=== PATIENT | female | born 1955 | race Caucasian/White ===

== ENCOUNTER 2021-11-25 18:25 | Emergency (ER) | payer MEDICARE, MEDICAID, SELFPAY ==
[2021-11-25 18:37] VITALS: BP 146/62; PULSE 66; RESP 18; TEMP 36.5; O2SAT 99
--- NOTE | 2021-11-25 19:12 | ED.URI ---
HPI - URI/Sore Throat General Chief Complaint: Upper Respiratory Infection Stated Complaint: cough/fever/congestion Time Seen by Provider: 11/25/21 18:57 Source: patient and RN notes reviewed Mode of arrival: ambulatory Limitations: no limitations History of Present Illness HPI Narrative: Patient presents today complaining of 5-day history of cough, facial pressure and congestion, chills. Denies fever, shortness of breath, chest pain. She has been taking Mucinex DM and Claritin with some relief. She called her doctor today and describes symptoms and was placed on Augmentin for presumed sinus infection. She also had a subsequent home a positive COVID-19 test. She is a non-smoker. She has been vaccinated against COVID-19. MD elicited complaint: cough, nasal congestion and sinus pain Related Data Home Medications Medication Instructions Recorded Confirmed citalopram 20 mg PO DAILY 11/30/19 11/25/21 levothyroxine 50 mcg PO DAILY 11/30/19 11/25/21 amoxicillin-pot clavulanate 1 tablet PO BID 11/25/21 11/25/21 gabapentin 300 mg PO DAILY 11/25/21 11/25/21 loratadine 10 mg PO DAILY 11/25/21 11/25/21 naproxen 500 mg PO DAILY PRN 11/25/21 11/25/21 spironolacton-hydrochlorothiaz 1 tablet PO DAILY 11/25/21 11/25/21 Allergies Allergy/AdvReac Type Severity Reaction Status Date / Time No Known Allergies Allergy Verified 11/25/21 19:01 Review of Systems Review of Systems: CONSTITUTIONAL: Denies body aches, fever, or sweats.+ Chills EYES: Denies visual changes, redness, or discharge. ENT: Denies rhinorrhea, sore throat, or otalgia.+ Congestion, facial pressure CARDIOVASCULAR: Denies chest pain, palpitations, or edema. RESPIRATORY: Denies dyspnea.+ Cough GASTROINTESTINAL: Denies abdominal pain, nausea, vomiting, or diarrhea. GENITOURINARY: Denies dysuria or hematuria. SKIN: Denies rash, itching, or wounds. MUSCULOSKELETAL: Denies back pain, joint pain, or myalgia. NEUROLOGIC: Denies headache, numbness, tingling, or weakness. PSYCH: Denies depression or anxiety. FOR[facility]LY [facility] Past Medical History Medical History (Updated 11/25/21 @ 19:15 by Juanita Hackett, [employer], ) Anxiety Depression Hypertension Hypothyroidism Comments At time of signature, I have reviewed and agree with nursing past medical, surgical, social and family history unless otherwise noted. Please see nursing chart for further information. There is no relevant family history pertinent to the presenting complaint Exam Narrative: GENERAL: Mildly ill-appearing, well-nourished, and in no acute distress. HEAD: Normocephalic, atraumatic. EYES: EOMI. No redness or drainage. Conjunctivae normal. ENT: Mucous membranes pink and moist. Nares congested. No rhinorrhea. TMs normal bilaterally. Throat normal. Uvula midline. NECK: Normal AROM. Supple. No lymphadenopathy. CHEST: No respiratory distress. Clear to auscultation. HEART: Regular rate and rhythm. No murmur appreciated. Normal peripheral pulses. EXTREMITIES: Normal range of motion. No edema. SKIN: Warm, dry, no rash. Capillary refill normal. Normal skin turgor. NEURO: No focal deficits. Alert and oriented x3. Gait steady. PSYCH: Normal affect. No signs of depression or anxiety. Course Course Level of Care: Express Care Visit Vital Signs Vital signs: Vital Signs Temperature 97.7 F 11/25/21 18:37 Pulse Rate 66 11/25/21 18:37 Respiratory Rate 18 11/25/21 18:37 Blood Pressure 146/62 H 11/25/21 18:37 Pulse Oximetry 99 11/25/21 18:37 Temperature 97.7 F 11/25/21 18:37 Pulse Rate 66 11/25/21 18:37 Respiratory Rate 18 11/25/21 18:37 Blood Pressure 146/62 H 11/25/21 18:37 Pulse Oximetry 99 11/25/21 18:37 Reviewed. Pt has been instructed to follow up with her PCP regarding her elevated blood pressure today. MDM - URI/Sore Throat Differential Diagnosis Differential diagnosis: Likely upper respiratory infection, sinusitis, viral infection and other (COVID-19) Critical Care
== END 2021-11-25 19:20 | disposition home or self-care (01) ==
PROVIDERS: Emergency Provider Nurse Practitioner
DX: U07.1 COVID-19 (principal); I10 Essential (primary) hypertension; E03.9 Hypothyroidism, unspecified; F41.9 Anxiety disorder, unspecified; F32.9 Major depressive disorder, single episode, unspecified
CPT/HCPCS: 99211; G0463

== ENCOUNTER 2022-04-21 13:00 | Outpatient (RCR) | payer MEDICARE, MEDICAID, SELFPAY ==
--- NOTE | 2022-01-25 17:30 | PTOPEVAL ---
PHYSICAL THERAPY EVALUATION AND PLAN OF CARE Thank you for referring Shantelle Hardy to [facility].? The patient is scheduled to be seen for therapy? 2x/week for 4 weeks. Please review, sign, date and return this plan of care CIRO. I agree with and certify that the following plan of care is medically necessary. Referring Physician Date Attending Provider: Iker Corado MD Evaluation Diagnosis right shoulder pain, rotator cuff tendinopathy Onset 06/2021 Subjective Information States that she has been Query Text:As Reported By Patient/ having pain in the right Family shoulder. She notes that her shoulder did not hurt prior to a fall in June 2021. States that it is not terrible pain but it is there. States that there is sometimes a catch in the shoulder preventing her from even picking up a cup of water. Will sometimes throb at night and an ice pack usually helps. States that most of the pain is in the upper arm as opposed to shoulder. States that her neck will start to ache if the shoulder/arm is really bothering her. Took oral steroids for a little while and is not sure that it did or did not help. Self Report Pain Assessment Right Shoulder(s) Reported Pain Level 7 Pain Description Aching Pain Frequency Chronic,Continuous Other Pain Aggravating Factors using the arm Pain Score Pain Score 7: Self Report Interventions Used Interventions Used By Clinicians Exercise,Mobilization,Manual Therapy Techniques Pain Relief Interventions Used By Ice,Medication,Massage Patient Modalities Cervical and Lumbar ROM Cervical ROM Cervical Flexion (0-60) 50 Query Text:Active in Degrees Cervical Extension (0-70) 50 Query Text:Active in Degrees Cervical Rotation Right (0-90) 60 Query Text:Active in Degrees Cervical Rotation Left (0-90) 50 Query Text:Active in Degrees Upper Extremity Range of Motion Scapular/ Shoulder Range of Motion Left Shoulder Flexion - Active 145 Shoulder Abduction - Active 145 Shoulder Medial Rotation - Active L1 Query Text:Reach Behind the Back Right Shoulder Flexion - Activ
--- NOTE | 2022-02-21 13:21 | PCPTNOTE ---
Patient did not show up for scheduled appointment this date. Called and left voicemail for Pt about missed appointment. Reminded of upcoming Re-eval on March 01 @ 13:00. This is Pt's first N/S.
--- NOTE | 2022-03-01 13:51 | PTOPEVAL ---
PHYSICAL THERAPY PROGRESS AND PLAN OF CARE UPDATE Thank you for referring Shantelle Hardy to [facility].? The patient is scheduled to be seen for therapy? 1x/week for 4 weeks. Please review, sign, date and return this plan of care CIRO. I agree with and certify that the following plan of care is medically necessary. Referring Physician Date Attending Provider: Iker Corado MD Diagnosis right shoulder pain, rotator cuff tendinopathy Onset 06/2021 Subjective Information States that she has been Query Text:As Reported By Patient/ having pain in the right Family shoulder. She notes that her shoulder did not hurt prior to a fall in June 2021. States that it is not terrible pain but it is there. States that there is sometimes a catch in the shoulder preventing her from even picking up a cup of water. Will sometimes throb at night and an ice pack usually helps. States that most of the pain is in the upper arm as opposed to shoulder. States that her neck will start to ache if the shoulder/arm is really bothering her. Took oral steroids for a little while and is not sure that it did or did not help. Self Report Pain Assessment Right Shoulder(s) Reported Pain Level 5 Pain Description Aching Pain Frequency Chronic,Continuous Other Pain Aggravating Factors using the arm Scapular/ Shoulder Range of Motion Left Shoulder Flexion - Active 145 Shoulder Abduction - Active 150 Shoulder Medial Rotation - Active L1 Query Text:Reach Behind the Back Shoulder Lateral Rotation - Active 60 Right Shoulder Flexion - Active 130 Shoulder Abduction - Active 150 Shoulder Medial Rotation - Active L3 Query Text:Reach Behind the Back Shoulder Lateral Rotation - Active 50 Upper Extremity Muscle Strength Testing Left Shoulder Flexion Strength 4- Good - Shoulder Abduction Strength 4- Good - Shoulder Medial Rotation Strength 4- Good - Shoulder Lateral Rotation Strength 4- Good - Right Shoulder Flexion Strength 4- Good - Shoulder Abduction Strength 4- Good - Shoulder Medial Rotation Strength 4- Good - Shoulder Lateral Rotation Strength 4- Good - PT Clinical Summary Shantelle has participated in
--- NOTE | 2022-03-24 09:51 | PCPTNOTE ---
Patient did not show up for scheduled appointment this date.
--- NOTE | 2022-03-29 13:04 | PTOPEVAL ---
PHYSICAL THERAPY PROGRESS REPORT and PLAN OF CARE UPDATE Thank you for referring Shantelle Hardy to [facility].? The patient is scheduled to be seen for therapy? 1-2x/week for 4 weeks to address low back and hip pain and findings. Please review, sign, date and return this plan of care CIRO. I agree with and certify that the following plan of care is medically necessary. Referring Physician Date Attending Provider: Iker Corado MD Diagnosis right shoulder pain, rotator cuff tendinopathy Onset 06/2021 Subjective Information states that her shoulder is Query Text:As Reported By Patient/ generally doing well now. She Family is doing yard work and every now and then it flairs up but she uses heating pad and she feels pretty good. She now has an order from physician for low back and hip pain. Occasional pain. She does have a history of spinal surgery ( fusion). Standing for long periods of time increases back and leg pain. Self Report Pain Assessment Back Reported Pain Level 3 Pain Frequency Chronic,Continuous Greatest Pain Intensity 9 Pain Aggravating Factors Walking,Weight Bearing/ Standing Patient Cervical and Lumbar ROM Lumbar ROM Lumbar Flexion (0-90) 30 Query Text:Active in Degrees Lumbar Flexion Active Ankle Query Text:Hands to: Upper Extremity Range of Motion Scapular/ Shoulder Range of Motion Left Shoulder Flexion - Active 145 Shoulder Abduction - Active 150 Shoulder Medial Rotation - Active L1 Query Text:Reach Behind the Back Shoulder Lateral Rotation - Active 60 Right Shoulder Flexion - Active 145 Shoulder Abduction - Active 150 Shoulder Medial Rotation - Active L1 Query Text:Reach Behind the Back Shoulder Lateral Rotation - Active 60 Lower Extremity Muscle Strength Testing Hip Strength Bilateral Hip Flexion Strength 4+ Good + Hip Extension Strength 3- Fair - Hip Abduction Strength 3- Fair - Knee Strength Bilateral Knee Flexion Strength 4 Good Knee Strength Comments trace quad set performed - required significant visual and tactile cues to engage Scapular/Shoulder Strength testing Left Shoulder Flexion Strength 4 Good Shoulder Abduction Strength 4 Good Shoulder Medial Rotation Strength 4 Good Shoulder Lateral Rotation Strength 4 Good Right
--- NOTE | 2022-04-12 15:24 | PCPTNOTE ---
Patient did not show up for scheduled appointment this date. Attempted calling Pt twice, however phone number in chart states it is no longer in service. Unable to leave voicemail. This is Pt's third N/S.
--- NOTE | 2022-04-14 13:13 | PCPTNOTE ---
Patient called & cancelled scheduled appointment this date due to being out of town.
--- NOTE | 2022-04-25 14:55 | PCPTNOTE ---
This treatment is being continued on visit number [id number]. Please see documentation on both accounts to view progress. Completed interventions, outcomes, and problems have been marked as Inactive to facilitate the copying of the Care plan routine for recurring accounts.
== END 2022-04-25 13:14 | disposition home or self-care (01) ==
LOC: ANHPT 13:00
PROVIDERS: Referring Provider Orthopaedic Surgery; Visit Provider Orthopaedic Surgery
DX: M75.111 Incomplete rotator cuff tear or rupture of right shoulder, not specified as traumatic (principal)
CPT/HCPCS: 97110; 97112; 97140; 97162; 97530

== ENCOUNTER 2022-05-03 07:23 | Outpatient (RCR) | payer MEDICARE, MEDICAID, SELFPAY ==
--- NOTE | 2022-04-25 14:55 | PCPTNOTE ---
The treatment documented on this account is a continuation of the treatment documented on visit number [id number]. Please see documentation on both accounts to view progress. The Plan of Care has been transitioned and updated within the new V#. I have addressed and agree with the discipline specific Problems, Interventions, and Goals for the current certification period. Completed interventions, outcomes, and problems have been marked as Inactive to facilitate the copying of the Care plan routine for recurring accounts.
--- NOTE | 2022-04-28 13:29 | PCPTNOTE ---
Patient did not show up for scheduled appointment this date. Called and left voicemail about missed appointment. Reminded Pt of upcoming Re-Eval next 05/03/22 @ 14:00.
--- NOTE | 2022-05-03 14:47 | PTOPEVAL ---
PHYSICAL THERAPY DISCHARGE NOTE Thank you for referring Shantelle Hardy to [facility].? Please review, sign, date and return this plan of care CIRO. I agree with and certify that the following plan of care is medically necessary. Referring Physician Date Attending Provider: Iker Corado MD Diagnosis right shoulder pain, rotator cuff tendinopathy Onset 06/2021 Subjective Information States she feels like she is Query Text:As Reported By Patient/ walking better overall. She Family does feel like her hip is screaming and she thinks it is maybe because she is walking differently and even better. She stats she has been on her feet every day for about a month and she is now able to rest down some. She is taking gabepenton and that is helping to calm the nerves at night. Patient Lumbar ROM Lumbar Flexion (0-90) 30 Lumbar Flexion Active Ankle Hip Strength Right Hip Flexion Strength 5 Normal Hip Extension Strength 3 Fair Hip Abduction Strength 3 Fair Knee Strength Right Knee Flexion Strength 5 Normal Knee Extension Strength 4 Good Gait Pattern Trendelenburg Gait Gait Pattern Observed Trunk Lateral Lean - Right Other Gait Observations continues to have abnormal gait pattern but does have better control and can correct gait pattern PT Clinical Summary Shantelle reports an improvement in symptoms and improved gait. She is able to participate in activities she wishes to participate in. Shantelle demonstrates a mild increase in right hip strength and demonstrates improved lumbar spine mobility. she is independent in HEP and uses a pool at home to exercise and increase strength. We will d/c from PT at this time.
== END 2022-07-18 11:57 | disposition home or self-care (01) ==
LOC: ANHPT 07:23
PROVIDERS: Referring Provider Orthopaedic Surgery; Visit Provider Orthopaedic Surgery
DX: M75.111 Incomplete rotator cuff tear or rupture of right shoulder, not specified as traumatic (principal); M70.60 Trochanteric bursitis, unspecified hip
CPT/HCPCS: 97110; 97112; 97162; 97530

== ENCOUNTER 2022-08-01 09:13 | Outpatient (CLI) | payer MEDICARE, MEDICAID, SELFPAY ==
--- NOTE | ~2022-08-01 | CT_ITS ---
EXAMINATION: CT diagnostic chest wo con DATE: 08/01/2022 09:31 INDICATION: Shortness of breath and cough TECHNIQUE: Computed tomography (CT) of the chest was performed without intravenous contrast. The dose -length product (DLP) was 544.43 mGy-cm. Automated exposure control and iterative reconstruction tech CrossReaderque were employed. COMPARISON: None FINDINGS: The lungs are free of acute opacities. No pleural effusion or pneumothorax. 2 mm nodules of the lingula and right lower lobe likely reflect old granulomatous disease. Calcified coronary artery atherosclerosis is noted. No pathologically enlarged thoracic lymph nodes are identified. The heart size is normal. There is a moderate-sized sliding hiatal hernia. There is severe thoracic spondylosis . IMPRESSION: 1. No CT correlate for the patient's symptoms. 2. Moderate-sized hiatal hernia. Reviewed, dictated and finalized at location A.
--- NOTE | 2022-08-01 12:44 | WPDPFTINT ---
PFT Procedure Performed PFT Procedure Performed Spirometry with Pre/Post Bronchodilator Plethysmography (Lung Vol) Diffusing Cap (DLCO) Flow Vol Loop PFT Interpretation This is a pulmonary function test with pre and post-bronchodilator spirometry, plethysmography and diffusing capacity. The test was performed and results interpreted in accordance with the 2019 and 2005 ATS/ERS Task Force guidelines respectively using the Global Lung Function Initiative-2012 reference equations. Patient demonstrated good effort and cooperation. Reproducibility criteria were met. The quality of the pre bronchodilator spirometry maneuver was Grade A and post bronchodilator spirometry maneuver was Grade A. Findings: Spirometry: The contour the inspiratory and expiratory flow tracing are normal. The pre bronchodilator FVC is 2.24 L, 88% predicted. The pre bronchodilator FEV1 is 1.77 L, 88% predicted. The pre bronchodilator FEV1: FVC ratio 79%. The post bronchodilator FVC is 2.52 L, representing a 12% increase. The post bronchodilator FEV1 is 2.08 L, representing a 17% increase. The post bronchodilator FEV1: FVC ratio was 82%. Plethysmography: The total lung capacity is 4.69 L, 106% predicted. The functional residual capacity is 2.55 L, 102% predicted. The residual volume is 2.36 L, 124% predicted. Diffusing capacity: The diffusing capacity unadjusted for hemoglobin and carboxyhemoglobin is 18.2, 94% predicted. The diffusing capacity adjusted for alveolar volume is 4.27, 94% predicted. Impression: The spirometry is normal without evidence of an obstructive abnormality. There is significant improvement after inhaling a single dose of albuterol. The lung volumes are normal. The diffusing capacity is normal. There are no prior studies for comparison
== END 2022-08-01 09:14 | disposition home or self-care (01) ==
PROVIDERS: PCP Family Medicine; Visit Provider Nurse Practitioner Family
DX: R05.3 Chronic cough (principal); U09.9 Post COVID-19 condition, unspecified; R06.09 Other forms of dyspnea; K44.9 Diaphragmatic hernia without obstruction or gangrene
CPT/HCPCS: 71250; 94060; 94726; 94729

== ENCOUNTER → 2022-08-29 12:32 | Outpatient (CLI) | payer MEDICARE, MEDICAID, SELFPAY ==
--- NOTE | ~2022-08-29 | MM_ITS ---
EXAMINATION: MM screening [facility] BI w leslee HISTORY: Screening mammogram TECHNIQUE: Craniocaudal and mediolateral oblique 3-D tomosynthesis images were obtained and synthetic 2-D images were generated. CAD analysis was submitted and interpreted. COMPARISON: 06/19/2018, 03/29/2017, 06/17/2015 BREAST PARENCHYMAL COMPOSITION: There are scattered areas of fibroglandular density. FINDINGS: No suspicious mass, calcification, or architectural distortion are identified in either rsoa ast to suggest malignancy. There has been no suspicious interval change. IMPRESSION: 1. No mammographic evidence of malignancy. 2. Recommend routine screening mammography in one year. BI-RADS Category 1: Negative Reviewed, dictated and finalized at location A.
--- NOTE | ~2022-08-29 | DEXA_ITS ---
Bone Density Report Name: STACIE BANEGAS Age: 67 Sex: Female Ethnicity: White Date of : 1955 Indication: postmenopausal; screening for osteoporosis; parental hip fracture; Referring Provider: LOWELL IZQUIERDO Study: Bone densitometry was performed. Exam Date: August 29, 2022 Accession number: [id number] Bone Density: Region BMD T-score Z-score Classification AP Spine (L1, L2) 1.187 1.9 3.6 Normal Femoral Neck (Left) 0.724 -1.1 0.5 Osteopenia Total Hip (Left) 0.941 0.0 1.3 Normal Femoral Neck (Right) 0.678 -1.5 0.0 Osteopenia Total Hip (Right) 0.911 -0.3 1.0 Normal Total Hip Mean 0.926 -0.2 1.2 Normal World Health Organization criteria for BMD impression classify patients as: Normal (T-score at or above -1.0), Osteopenia (T-score between -1.0 and -2.5), or Osteoporosis (T-score at or below -2.5). 10-year Fracture Risk(1): Major Osteoporotic Fracture 14% Hip Fracture 1.0% Reported Risk Factors: [place] (), Neck BMD=0.678, BMI=43.8, parental fracture (1) FRAX(R) Version 3.08. Fracture probability calculated for an untreated patient. Fracture probability may be lower if the patient has received treatment. Previous Exams: Region Exam Age BMD T-score BMD Change BMD Change Date g/cm2 vs Baseline vs Previous AP Spine(L1, L2) 08/29/2022 67 1.187 1.9 -0.009 -0.009 03/29/2017 61 1.196 2.0 Total Hip(Left) 08/29/2022 67 0.941 0.0 0.024 0.024 03/29/2017 61 0.917 -0.2 Total Hip(Right) 08/29/2022 67 0.911 -0.3 0.040* 0.040* 03/29/2017 61 0.871 -0.6 *Denotes significance at 95% confidence level, LSC for AP Spine = 0.022 g/cm2, LSC for Total Hip = 0.027 g/cm2 Clinical Information Provided by Patient: Parent has had a hip fracture Has used the following medications: Vitamin D Patient maximum height was 61.1 Menopause Age: 51 Drinks caffeinated beverages Onset of menses at age 17 Number of children 1 Impression: The patient has low bone mass, based on the Right Femoral Neck T-score. The patient has an estimated ten-year risk of hip fracture of 1% and an estimated ten-year risk of major fracture of 14%, based on the WHO FRAX algorithm. The patient has risk factors, including: parental hip fracture. No significant bone loss was observed. Discussion: BONE DENSITY IS LOW AT ONE OR MORE SKELETAL SITES. This patient's lowest T-score is low at one
== END ==
PROVIDERS: PCP Family Medicine; Visit Provider Obstetrics & Gynecology Gynecology
DX: Z12.31 Encounter for screening mammogram for malignant neoplasm of breast (principal); Z78.0 Asymptomatic menopausal state; M85.852 Other specified disorders of bone density and structure, left thigh; M85.851 Other specified disorders of bone density and structure, right thigh
CPT/HCPCS: 77063; 77067; 77080

== ENCOUNTER 2023-02-20 10:55 | Outpatient (CLI) | payer MEDICARE, MEDICAID, SELFPAY ==
--- NOTE | ~2023-02-20 | XR_ITS ---
Clinical Indication: CHF PA and lateral views of the chest: Comparison: None Findings: The lungs are clear, without evidence of focal consolidation or pleural effusion. Cardiome diastinal silhouette is within normal limits, status post CABG. Bones and soft tissues are unremarkab le. Impression: Clear lungs. Status post CABG. Reviewed, dictated and finalized at location . Impression: Clear lungs. Status post CABG.
== END 2023-02-20 10:56 | disposition home or self-care (01) ==
PROVIDERS: PCP Family Medicine; Visit Provider Specialist
DX: I50.22 Chronic systolic (congestive) heart failure (principal); Z95.1 Presence of aortocoronary bypass graft
CPT/HCPCS: 71046

== ENCOUNTER 2023-02-22 13:23 | Outpatient (CLI) | payer MEDICARE, MEDICAID, SELFPAY ==
--- NOTE | ~2023-02-22 | US_ITS ---
EXAMINATION: US pelvic complete w TV DATE: 02/22/2023 14:09 INDICATION: Pelvic pain Comparison:No prior studies for comparison. TECHNIQUE: Multiple transabdominal and endovaginal sonographic images of the pelvis performed. FINDINGS: The uterus measures 5.3 x 2.6 x 3.2 cm. There is a uterine fibroid measuring 1.5 x 1.4 x 1. 4 cm The endometrial complex measures 2 mm. The ovaries are not visualized. There is no free fluid in the pelvis. There are no abnormal masses seen on either side. IMPRESSION: 1. Uterine fibroid measuring 1.5 cm maximum dimension. Reviewed, dictated and finalized at location A.
== END 2023-02-22 13:24 | disposition home or self-care (01) ==
PROVIDERS: PCP Family Medicine; Visit Provider Family Medicine
DX: R10.2 Pelvic and perineal pain (principal); D25.9 Leiomyoma of uterus, unspecified
CPT/HCPCS: 76830; 76856

== ENCOUNTER 2023-03-08 09:45 | Outpatient (RCR) | payer MEDICARE, MEDICAID, SELFPAY | END 2023-04-17 14:28 | disposition home or self-care (01) | LOC: ANHCPREHAB 09:45 | PROVIDERS: PCP Family Medicine | DX: Z95.1 Presence of aortocoronary bypass graft (principal) | CPT/HCPCS: 93798 ==

== ENCOUNTER → 2023-05-29 12:57 | Outpatient (CLI) | payer MEDICARE, MEDICAID, SELFPAY ==
--- NOTE | ~2023-05-29 | MR_ITS ---
MRI of the lumbar spine Clinical History: Pain, radiculopathy Technique: Axial T2-weighted images, and sagittal T1-weighted, T2-weighted, and T2 fat-sat images wer e acquired. Following intravenous administration of 20 cc MultiHance gadolinium, T1-weighted fat-sat imaging was performed in the axial and sagittal planes. Findings: No acute fracture identified. There is probable minimal grade 1 anterolisthesis of L2 over L3. Patient has undergone interval posterior fusion from L4 to L5, with bilateral rods and transpedic ular screws present, as well as interbody fusion device at this level. There is probable L4 laminecto my. No suspicious bone marrow signal abnormality seen. At L1-L2, there is moderate to advanced degenerative disc narrowing. There is diffuse disc bulge and severe facet arthropathy, which contribute to moderate to severe thecal sac compression. There is sev ere right neural foraminal narrowing, and mild to moderate left neural foraminal narrowing. At L2-L3, disc bulge and severe facet arthropathy result in severe spinal canal stenosis/thecal sac c ompression. There is severe right neural foraminal narrowing, and moderate to severe left neural fora fabi narrowing. At L3-L4, disc bulge and severe facet arthropathy are present. No stacy central canal stenosis. There is mild to moderate bilateral neural foraminal narrowing. At L4-L5, there is no disc bulge or herniation. No spinal canal stenosis. Bilateral neural foramina a re probably preserved. At L5-S1, there is no disc bulge or herniation. No spinal canal stenosis or definite neural foraminal narrowing. Paravertebral soft tissues are unremarkable aside from expected postoperative change. No suspicious p ostcontrast enhancement identified. Impression: Severe degenerative spondylosis at L1-L2 and L2-L3, as detailed above. Mild to moderate bilateral neural foraminal narrowing at L3-L4. Status post interval posterior fusion and interbody fusion from L4 to L5, as detailed above. Minimal grade 1 anterolisthesis of L2 over L3. Reviewed, dictated and finalized at location M. Impression: Severe degenerative spondylosis at L1-L2 and L2-L3, as detailed above. Mild to moderate bilateral neural foraminal narrowing at L3-L4. Status post interval posterior fusion and interbody fusion from L4 to L5, as de tailed above. Minimal grade 1 anterolisthesis of L2 over L3.
== END ==
PROVIDERS: PCP Family Medicine; Visit Provider Nurse Practitioner Family
DX: M47.26 Other spondylosis with radiculopathy, lumbar region (principal); Z98.1 Arthrodesis status
CPT/HCPCS: 72158; A9577

== ENCOUNTER 2023-10-11 15:20 | Outpatient (CLI) | payer MEDICARE, MEDICAID, SELFPAY ==
--- NOTE | ~2023-10-11 | XR_ITS ---
XR lumbar spine 6V w bending 10/11/2023 15:55 Indication: Low back pain. Procedure: 7 views lumbar spine Comparison: No prior studies for comparison. Findings: Status post posterior spinal fusion with interbody fusion at L4-5. There is disc narrowing at all lumbar levels. There is advanced multilevel facet hypertrophy. No acute fracture or traumatic malalignment. No significant alteration with flexion/extension. Status post laminectomy at L4-5. Ther e is levoscoliosis centered at L3. There are degenerative changes of the left sacroiliac joint. Impression: 1: Severe lumbar spondylosis with posterior and interbody fusion at L4-5. Reviewed, dictated and finalized at location L. CH SUPERVISOR Impression: 1: Severe lumbar spondylosis with posterior and interbody fusion at L4-5.
== END 2023-10-11 15:21 | disposition home or self-care (01) ==
PROVIDERS: PCP Family Medicine; Visit Provider Physician Assistant
DX: M47.896 Other spondylosis, lumbar region (principal); Z98.1 Arthrodesis status
CPT/HCPCS: 72114

== ENCOUNTER → 2023-11-17 10:08 | Outpatient (CLI) | payer MEDICARE, MEDICAID, SELFPAY ==
--- NOTE | ~2023-11-17 | MM_ITS ---
EXAMINATION: MM screening [facility] BI w leslee HISTORY: Screening mammogram TECHNIQUE: Craniocaudal and mediolateral oblique 3-D tomosynthesis images were obtained and synthetic 2-D images were generated. CAD analysis was submitted and interpreted. COMPARISON: 08/29/2022, 06/19/2018, 03/29/2017 BREAST PARENCHYMAL COMPOSITION: There are scattered areas of fibroglandular density. FINDINGS: No suspicious mass, calcification, or architectural distortion are identified in either rosa ast to suggest malignancy. There has been no suspicious interval change. IMPRESSION: 1. No mammographic evidence of malignancy. 2. Recommend routine screening mammography in one year. BI-RADS Category 1: Negative Reviewed, dictated and finalized at location A. IER AND WAITER/WAITRESS
== END ==
PROVIDERS: PCP Family Medicine; Visit Provider Obstetrics & Gynecology Gynecology
DX: Z12.31 Encounter for screening mammogram for malignant neoplasm of breast (principal)
CPT/HCPCS: 77063; 77067

== ENCOUNTER 2024-05-16 10:38 | Emergency (ER) | payer MEDICARE, SELFPAY ==
[2024-05-16 10:52] VITALS: BP 105/57; PULSE 65; RESP 20; TEMP 36.6; O2SAT 98
--- NOTE | 2024-05-16 11:22 | ED.URI ---
HPI - URI/Sore Throat General Chief Complaint: Upper Respiratory Infection Stated Complaint: Sinus Time Seen by Provider: 05/16/24 11:22 Source: patient History of Present Illness HPI Narrative: patient reports 5 days of fatigue, cough, body aches, GI disturbance. She has not been taking anything for her symptoms. She denies any shortness of breath. She denies fever, does complain of some chills and sweats. Related Data Home Medications Medication Instructions Recorded Confirmed loratadine 10 mg tablet 10 mg PO DAILY 11/25/21 03/20/24 pantoprazole 40 mg tablet,delayed 40 mg PO QAM 07/20/22 05/16/24 release pregabalin 200 mg capsule 200 mg PO DAILY 11/17/22 05/16/24 aspirin 81 mg tablet,delayed 81 mg PO DAILY 05/25/23 05/16/24 release ferrous sulfate 325 mg (65 mg 325 mg PO DAILY 05/25/23 05/16/24 iron) tablet (FeroSul) furosemide 40 mg tablet 40 mg PO DAILY 05/25/23 03/20/24 metoprolol tartrate 25 mg tablet 25 mg PO DAILY 05/25/23 03/20/24 potassium chloride 20 mEq 20 meq PO DAILY 05/25/23 03/20/24 tablet,extended release(part/cryst) amiodarone 100 mg tablet 100 mg PO DAILY 10/11/23 05/16/24 atorvastatin 80 mg tablet 80 mg PO QHS 10/11/23 05/16/24 citalopram 40 mg tablet 20 mg PO DAILY 10/11/23 05/16/24 levothyroxine 88 mcg capsule 112 mcg PO DAILY 10/11/23 03/20/24 nitroglycerin 0.4 mg sublingual 0.4 mg sublingual Q5M PRN Chest 10/11/23 05/16/24 tablet Pain Allergies Allergy/AdvReac Type Severity Reaction Status Date / Time No Known Allergies Allergy Verified 05/16/24 11:00 Review of Systems Constitutional: Constitutional: Reports as per HPI, Reports chills, Reports fatigue and Denies fever(s) ENT: Reports sore throat Cardiovascular: Cardiovascular: Reports as per HPI and Reports no additional cardiovascular complaints Respiratory: Respiratory: Reports as per HPI, Reports cough and Denies wheezing Gastrointestinal: Gastrointestinal: Reports diarrhea, Reports nausea and Denies vomiting Musculoskeletal: Musculoskeletal: Reports myalgias Neurologic: Reports headache(s) [facility] Past Medical History Medical History Anxiety COVID-19 Degenerative disc disease cervical/lumbar Depression GERD (gastroesophageal reflux disease) Hypertension Hypothyroidism Surgical History Surgical History History of lumbar fusion 2018 S/P triple vessel bypass Family History Family History Father Diabetes mellitus Heart disease Hypertension HLD (hyperlipidemia) Depression Mother Cancer Sibling Alcoholism Cancer Hypertension Depression Lung disease Social History Social History Smoking status: Never smoker Second hand tobacco smoke exposure: Yes Alcohol intake: current Substance use: never Substance use type: does not use Lack of Transportation: No Lack of Food: Never True Current Housing: I Have Housing Concerned About Future Housing: No Difficulty Paying Gas/Electric Bills: YES Difficulty Paying for Meds: No Currently Unemployed: No Education: Trade/Vocational Certificate Difficulty w/ Childcare or Family Care: No Living arrangements: with family Occupation/Education: retired Gender identity (if verbalized by the patient): Female Exam Const: General: no acute distress Nutritional Appearance: obese Orientation/consciousness: patient oriented x3 HENMT: Head: normal to inspection Ears: TM's normal bilaterally Face/Nose/Sinus: Normal external nose present Resp: Effort & Inspection: normal respiratory effort Auscultation: clear to auscultation bilaterally Cardio: Rate: regular rate Rhythm: regular rhythm Heart sounds: no murmurs GI: GI Palp: Yes Soft to palpation, No Tenderness to palpation present (GI), No Guarding d
== END 2024-05-16 11:44 | disposition home or self-care (01) ==
PROVIDERS: Emergency Provider Nurse Practitioner Family; PCP Family Medicine
DX: U07.1 COVID-19 (principal); K21.9 Gastro-esophageal reflux disease without esophagitis; I10 Essential (primary) hypertension; E03.9 Hypothyroidism, unspecified; M50.30 Other cervical disc degeneration, unspecified cervical region; M51.36 Other intervertebral disc degeneration, lumbar region; F41.9 Anxiety disorder, unspecified; F32.A Depression, unspecified; Z95.1 Presence of aortocoronary bypass graft
CPT/HCPCS: 87426; 99213; G0463

== ENCOUNTER 2024-06-25 10:03 | Outpatient (CLI) | payer MEDICARE, SELFPAY ==
--- NOTE | ~2024-06-25 | XR_ITS ---
3 VIEWS LUMBAR SPINE Ordering provider: Betty Salas, COMMERCIAL LENDER History: . FALL X1 WEEK AGO, GENERAL RIGHT SIDED PAIN . Comparison: October 11, 2023 FINDINGS: VERTEBRAL BODIES:Levoscoliosis. No visible fracture or subluxation. Degenerative changes of the spin e. Postoperative changes in the lumbosacral area. Disc spacer at the level of L5-S1. DISK SPACES: Degenerative disc disease at all levels. Multilevel facet joint disease. SOFT TISSUES: Atherosclerotic changes of the aorta. Left sacroiliitis. IMPRESSION: No acute osseous abnormality lumbar spine. Multilevel degenerative disc disease. Reviewed, dictated and finalized at location A.
--- NOTE | ~2024-06-25 | XR_ITS ---
3 VIEWS THORACIC SPINE Ordering provider: Betty Salas, CATTLE EXAMINER History: . FALL X1 WEEK AGO, GENERAL RIGHT SIDED PAIN . Comparison: None. FINDINGS: VERTEBRAL BODIES: Normal height and alignment. No visible fracture or subluxation. Degenerative graham es seen. DISK SPACES: Multilevel narrowing of the disc spaces. SOFT TISSUES: Normal. Calcific areas seen in the right side of the T12 may be tablets in the stomach. Postoperative changes in the sternum. IMPRESSION: No acute osseous abnormality of the thoracic spine. Multilevel degenerative disc disease. Reviewed, dictated and finalized at location A.
--- NOTE | ~2024-06-25 | XR_ITS ---
XR hip BI 2V w AP pelvis 06/25/2024 10:39 Indication: Status post recent fall. Right-sided pelvic pain. Procedure: AP pelvis and 2 views each hip Comparison: No prior studies for comparison. Findings: There are changes of fusion at L4-5. There are mild symmetric degenerative changes of the s acroiliac joints and hips. No fracture or traumatic malalignment. Pelvic rings are intact. Sacral for amen are symmetric. No foreign bodies. There are pelvic phleboliths. Impression: 1: No acute bone or joint abnormality. Reviewed, dictated and finalized at location B. Impression: 1: No acute bone or joint abnormality.
== END 2024-06-25 10:04 | disposition home or self-care (01) ==
DX: R10.9 Unspecified abdominal pain (principal); M51.36 Other intervertebral disc degeneration, lumbar region; M51.34 Other intervertebral disc degeneration, thoracic region
CPT/HCPCS: 72070; 72100; 73521

== ENCOUNTER 2024-07-05 12:54 | Outpatient (CLI) | payer MEDICARE, SELFPAY ==
--- NOTE | ~2024-07-05 | CT_ITS ---
EXAMINATION: CT thoracic lumbar wo con DATE: 07/05/2024 13:28 INDICATION: Injury of back of trunk. TECHNIQUE: Computed tomography (CT) of the thoracic and lumbar spine was performed without intravenou s contrast. Automated exposure control and iterative reconstruction technique were employed. The dose -length product was 1533.08 mGy-cm. COMPARISON: Chest CT 08/01/2022 FINDINGS: CT THORACIC SPINE: There is a large sliding hiatal hernia. There is 6 degrees dextrocurvature of thor acic spine. There is mild chronic anterior wedging of T6-T10 vertebral bodies. There is decreased dis c height at most levels, severe from T4-T5 through T12-L1. There is multilevel facet joint osteoarthr itis, severe at many levels. There is multilevel mild neural foraminal stenosis on either side. On th e right, there is moderate neural foraminal stenosis at T2-T3, T4-T5, T9-T10, and T10-T11. On the lef t, there is moderate neural foraminal stenosis at T4-T5, T5-C6, T9-T10, and T10-T11. There is mild ce ntral canal stenosis from T7-T8 through T12-L1. CT LUMBAR SPINE: There is 15 degrees levoscoliosis of lumbar spine. There are changes of anterior and posterior fusion procedures at L5-S1 with interbody devices and pedicle screws. S1 is a transitional segment. Vertebral body heights are normal. There is severely decreased disc height from L1-L2 throu gh L3-L4 and moderately decreased disc height at L4-L5. The following disc levels are specifically di scussed: L1-L2: The disc is bulging. There is severe bilateral facet joint osteoarthritis. There is severe rig ht and mild left neural foraminal stenosis. There is mild central canal stenosis. L2-L3: The disc is bulging. There is severe bilateral facet joint osteoarthritis. There is moderate r ight and mild left neural foraminal stenosis. There is mild central canal stenosis. L3-L4: The disc is bulging. There is severe bilateral facet joint osteoarthritis. There is mild bilat eral neural foraminal stenosis. There is moderate central canal stenosis. L4-L5: The disc is bulging. There is severe bilateral facet joint osteoarthritis. There is mild bilat eral neural foraminal stenosis. There is mild central canal stenosis. L5-S1: There is mild bilateral facet joint hypertrophy. There is mild left neural foraminal stenosis. There is no central canal stenosis. IMPRESSION: 1. No fracture. 2. Severe thoracic and lumbar spondylosis. 3. Scoliosis. 4. Large sliding hiatal hernia. Reviewed, dictated and finalized at location A.
--- NOTE | ~2024-07-05 | CT_ITS ---
EXAMINATION: CT pelvis wo con DATE: 07/05/2024 13:28 INDICATION: Injury of back of trunk. TECHNIQUE: Computed tomography (CT) of the pelvis was performed without intravenous contrast. Automat ed exposure control and iterative reconstruction technique were employed. The dose-length product was 687.91 mGy-cm. COMPARISON: Pelvis radiograph 06/25/2024 FINDINGS: There is lumbar levoscoliosis. There are changes of anterior and posterior fusion procedure s at L5-S1. There is severe lumbar spondylosis. There is mild osteoarthritis of the hips. Osteitis pu bis is noted. IMPRESSION: 1. No fracture. 2. Mild osteoarthritis of the hips. Reviewed, dictated and finalized at location A.
== END 2024-07-05 12:55 | disposition home or self-care (01) ==
LOC: MICIMG 12:55
DX: S30.0XXA Contusion of lower back and pelvis, initial encounter (principal); M43.04 Spondylolysis, thoracic region; M43.06 Spondylolysis, lumbar region; M41.9 Scoliosis, unspecified; K44.9 Diaphragmatic hernia without obstruction or gangrene; M16.0 Bilateral primary osteoarthritis of hip; X58.XXXA Exposure to other specified factors, initial encounter
CPT/HCPCS: 72128; 72131; 72192

== ENCOUNTER 2024-10-17 15:16 | Outpatient (CLI) | payer MEDICARE, SELFPAY ==
--- NOTE | ~2024-10-17 | XR_ITS ---
EXAMINATION: XR chest 2V DATE: 10/17/2024 15:34 INDICATION: Cough. Fatigue. Fever. TECHNIQUE: Frontal and lateral views of the chest were obtained. COMPARISON: Chest 2 views 02/20/23, thoracic spine CT 07/05/2024 FINDINGS: There is no pneumonia, pleural effusion, or pneumothorax. The heart size is normal. Median sternotomy wires are noted. There is a moderate-sized hiatal hernia. IMPRESSION: 1. Moderate-sized hiatal hernia. Reviewed, dictated and finalized at location A. JS DEVELOPER
== END 2024-10-17 15:17 | disposition home or self-care (01) ==
DX: K44.9 Diaphragmatic hernia without obstruction or gangrene (principal); R05.9 Cough, unspecified; R53.83 Other fatigue; R50.9 Fever, unspecified
CPT/HCPCS: 71046

== ENCOUNTER 2024-11-26 14:40 | Outpatient (CLI) | payer MEDICARE, SELFPAY ==
--- NOTE | ~2024-11-26 | MM_ITS ---
EXAMINATION: MM screening [facility] BI w leslee HISTORY: Screening TECHNIQUE: Craniocaudal and mediolateral oblique 3-D tomosynthesis images were obtained and synthetic 2-D images were generated. CAD analysis was submitted and interpreted. COMPARISON: Comparison to multiple prior studies sequentially, with oldest reviewed study dated 06/17. BREAST PARENCHYMAL COMPOSITION: Not dense: There are scattered areas of fibroglandular density. FINDINGS: There is no evidence of suspicious mass, calcification, or architectural distortion to sugg est malignancy in either breast. There has been no suspicious interval change. IMPRESSION: 1. No mammographic evidence of malignancy. 2. Recommend routine screening mammography in one year. BI-RADS Category 1: Negative Reviewed, dictated and finalized at location A. RAFT ELECTRICIAN
== END 2024-11-26 14:41 | disposition home or self-care (01) ==
LOC: MICIMG 14:41
PROVIDERS: Visit Provider Nurse Practitioner Women's Health
DX: Z12.31 Encounter for screening mammogram for malignant neoplasm of breast (principal)
CPT/HCPCS: 77063; 77067

== ENCOUNTER 2024-11-28 14:31 | Outpatient (CLI) | payer MEDICARE, MEDICAID, SELFPAY ==
--- NOTE | ~2024-11-28 | CT_ITS ---
EXAMINATION: CT abdomen pelvis w con DATE: 11/28/2024 15:26 INDICATION: Left lower quadrant abdominal pain TECHNIQUE: Computed tomography (CT) of the abdomen and pelvis was performed with 100 mL Omnipaque-350 intravenous contrast. Automated exposure control and iterative reconstruction technique were employe d. The dose-length product was 1381.94 mGy-cm. COMPARISON: CT pelvis dated 07/05/2024 FINDINGS: Mild discoid atelectasis at the medial left lower lobe. Heart size is normal. Median sternotomy wires and surgical clips about the heart suggesting prior coronary artery bypass grafting. No pericardial or pleural effusion. Moderate-sized sliding-type hiatal hernia. Liver, gallbladder, spleen, pancreas and bilateral adrenal glands are normal. A few bilateral low-attenuation likely renal cysts which are too small to definitively characterize. Bladder, uterus and bilateral adnexa are unremarkable. There is moderate sigmoid and descending colon predominant diverticulosis without adjacent inflammatory ch homero to suggest diverticulitis. Small bowel and appendix are normal. No free intraperitoneal gas or f luid. No pathologically enlarged abdominal or pelvic lymphadenopathy. Mild lumbar levoscoliosis with moderate to severe spondylosis. Combined instrumented L4-L5 anterior and posterior spinal fusion with interbody bone graft cage and bilateral vertical dot and pedicle screw fixation. IMPRESSION: 1. No acute intra-abdominal/pelvic process. 2. Moderate diverticulosis. 3. Moderate-sized sliding-type hiatal hernia. Reviewed, dictated and finalized at location A. ER TONGER
[2024-11-28 15:24] LABS: Estimated Glomerular Filt Rate 55
== END 2024-11-28 14:32 | disposition home or self-care (01) ==
DX: K57.30 Diverticulosis of large intestine without perforation or abscess without bleeding (principal); K44.9 Diaphragmatic hernia without obstruction or gangrene
CPT/HCPCS: 74177; Q9967

== ENCOUNTER 2025-02-12 00:28 | Day surgery (SDC) | payer MEDICARE, MEDICAID, SELFPAY ==
[2025-02-06 09:14] VITALS: BMI 43.9
--- OUTSIDE RECORDS SUMMARY | 2025-02-12 00:31 | XMS_ITS | Clinical Summary ---
Author Organization [facility] Address [address] [place] [address] Care Team Providers Care Executive Manager Name Role Phone Virginie Cifuentes MD Primary Care Provider + Dylan Bravo MD Unavailable Arnaud Richardson MD Unavailable [phone] Allergies No known active allergies Medications levothyroxine (SYNTHROID) 112 mcg tablet Take 1 tablet (112 mcg total) by mouth daily 08/31/20 22 Active loratadine (CLARITIN) 10 mg tablet Take 1 tablet (10 mg total) by mouth daily For 90 days 11/03/20 22 Active pregabalin (LYRICA) 200 mg capsule Take 1 capsule (200 mg total) by mouth 2 (two) times a day 09/13/20 22 Active Symbicort 160-4.5 mcg/actuation inhaler Inhale 2 puffs 2 (two) times a day 08/31/20 22 Active albuterol HFA (PROVENTIL HFA,VENTOLIN HFA,PROAIR HFA) 90 mcg/actuation inhaler Inhale 2 puffs 4 (four) times a day Active citalopram (CeleXA) 20 mg tablet Take 1 tablet (20 mg total) by mouth daily 30 tablet 12/08/19 23 Active aspirin 81 mg enteric coated tablet Take 1 tablet (81 mg total) by mouth daily 30 tablet 11 12/09/19 23 Active atorvastatin (LIPITOR) 80 mg tablet Take 1 tablet (80 mg total) by mouth nightly 30 tablet 11 12/08/19 Active lidocaine (LIDODERM) 5 % Place 1 patch on the skin daily Remove & discard patch within 12 hours or as directed by . 30 patch 1 12/09/19 23 Active Additional Information Patient taking differently:1 patch transdermalDaily PRN, pain, Remove & discard patch within 12 hours or as directed by MD., Reported on 04/04/2024 senna-docusate (PERICOLACE) 8.6-50 mgIndications: constipation Take 1 tablet by mouth daily as needed for constipation 30 tablet 12/08/19 Active metoprolol tartrate (LOPRESSOR) 25 mg immediate release tablet Take 0.5 tablets (12.5 mg total) by mouth 2 (two) times a day 30 tablet 11 12/08/[address] (PROTONIX) 40 mg EC tablet Take 1 tablet (40 mg total) by mouth 2 (two) times a day 60 tablet 1 12/15/19 Active Additional Information Patient taking differently:40 mg oralDaily, Reported on 04/04/2024 furosemide (LASIX) 40 mg tablet Take 1 tablet (40 mg total) by mouth 2 (two) times a day for 7 days, THEN 1 tablet (40 mg total) daily for 7 days. 21 tablet 12/15/19 Active Additional Information Patient taking differently: Take 1 tablet (40 mg total) by mouth daily, Reported on 04/04/2024 Jardiance 10 mg tablet Take 1 tablet (10 mg total) by mouth daily Active ferrous sulfate 325 mg (65 mg of elemental iron) tablet Take 1 tablet (325 mg total) by mouth daily with breakfast Acti ve atomoxetine (STRATTERA) 80 mg capsule Take 1 capsule (80 mg total) by mouth daily Active potassium chloride ER 10 mEq CR tablet Take 2 tablet/capsule (20 mEq total) by mouth daily Active rOPINIRole (REQUIP) 2 mg tablet Take 1 tablet (2 mg total) by mouth nightly Active Active Problems Problem Noted Date Diagnosed Date Precordial chest pain 04/06/2024 Postoperative atrial fibrillation 04/06/2024 Weakness 04/04/2024 ACS (acute coronary syndrome) 11/30/2022 Hypertension 11/30/2022 Hypothyroidism 11/30/2022 GERD (gastroesophageal reflux disease) 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 Neuropathy 11/30/2022 Coronary artery disease 11/30/2022 Preop testing 11/25/2022 Overview (11/25/2022): Added automatically from request for surgery [id number] Resolved Problems Problem Noted Date Diagnosed Date Resolved Date Acute congestive heart failu re, unspecified heart failure type 12/12/2022 12/15/2022 Gastrointestinal hemorrhage 12/12/2022 12/15/2022 Overview (12/14/2022): Added automatically from request for surgery [id number] Surgical History Surgery Date Site/Laterality Comments CORONARY ARTERY BYPASS GRAFT Medical History Medical History Date Comments Thyroid disease Coronary artery disease Atrial fibrillation (HCC) Hypertension Hyperlipidemia Social History Tobacco Use Types Packs/Day Years Used Date Smoking Tobacco: Never Smokeless Tobacco: Never Tobacco Cessation:Counseling Given: Not Answered OASIS D0700: Social Isolation Answer Da te Recorded Frequency of experiencing loneliness or isolatio n Never 12/12/2022 OASIS A1250: Transportation Answer Date Recorded Lack of Transportation (Medical) No 12/12/2022 Lack of Transportation (Non-Medical) No 12/12/2022 Patient Unable or Declines to Respond No 12/12/2022 OASIS B1300: Health Literacy Answer Cm e Recorded Frequency of needing help to read materials from doctor or pharmacy Never 12/12/2022 [facility] Utilities Answer Date Recorded In the past 12 months has e [place], gas, oil, or water [employer] threatened to shut off services in your home? No 04/04/2024 Social Connection and Isolat ion Panel [NHANES] Answer Date Recorded In a typical week, how many times do you talk on the phone with family, friends, or neighbors? More than three times a week 04/04/2024 How often do you get togethe r with friends or relatives? More than three times a week 04/04/2024 How often do you attend chur ch or worship services? Never 04/04/2024 Do you belong to any clubs o r organizations such as oriental orthodox groups, unions, fraternal or athletic groups, or school groups? No 04/04/2024 How often do you attend meet ings of the clubs or organizations you belong to? Never 04/04/2024 Are you , , di vorced, , never , or living with a partner? 04/04/2024 AUDIT-C Answer Date Recorded Q1: How often do you have a drink containing alc ohol? 2-4 times a month 04/04/2024 Q2: How many drinks containi ng alcohol do you have on a typical day when you are drinking? 1 or 2 04/04/2024 Q3: How often do you have si x or more drinks on one occasion? Never 04/04/2024 Overall Financial Resource Strain (CARDIA) Answe r Date Recorded How hard is it for you to pa y for the very basics like food, housing, medical care, and heating? Not hard at all 04/04/2024 Hunger Vital Sign Answer Date Recorded Within the past 12 months, y ou worried that your food would run out before you got the money to buy more. Never true 04/04/20 24 Within the past 12 months, t he food you bought just didn't last and you didn't have money to get more. Never true 04/04/2024 PRAPARE - Transportation Answer Date Re corded In the past 12 months, has l ack of transportation kept you from medical appointments or from getting medications? No 03/08 In the past 12 months, has l ack of transportation kept you from meetings, work, or from getting things needed for daily living? No 04/04/2024 Housing Stability Vital Sign Answer Cm e Recorded In the last 12 months, was t here a time when you were not able to pay the mortgage or rent on time? No 12/05/2022 Number of Places Lived in the Last Year Not on f ile 12/05/2022 In the last 12 months, was t here a time when you did not have a steady place to sleep or slept in a residential (including now)? No 12/05/2022 Housing Stability Vital Sign Answer Cm e Recorded In the last 12 months, was t here a time when you were not able to pay the mortgage or rent on time? No 04/04/2024 In the past 12 months, how m any times have you moved where you were living? 0 04/04/2024 At any time in the past 12 m [facility], were you homeless or living in a residential (including now)? No 04/04/2024 Personal Safety Answer Date Recorded Have you ever been in or are you currently in a harmful physical or emotional relationship or is someone making you feel afraid or unsafe? Denies 04/03/2024 Comments Unknown Sex and Gender Information Value Date Recorded Sex Assigned at Not on file Legal Sex Female 6:08 PM SURGICAL NURSE Gender Identity Not on file Sexual Orientation Not on file Obstetrics History Last Filed Vital Signs Vital Sign Reading Time Taken Comments Blood Pressure 101/63 04/05/2024 11:26 AM CDT Pulse 65 04/05/2024 11:26 AM CDT Temperature 36.5 C (97.7 F) 04/05/2024 11:26 AM CDT Respiratory Rate 18 04/05/2024 11:2 6 AM CDT Oxygen Saturation 100% 04/05/2024 11: 26 AM CDT Inhaled Oxygen Concentration - - Weight 104.1 kg (229 lb 6.4 oz) 04/04/2024 3:47 AM CDT Height 154.9 cm (5' 1 ) 04/04/2024 3:04 AM CDT Body Mass Index 43.34 04/04/2024 3:04 AM CDT Plan of Treatment Health Maintenance Due Date Last Done Comments Breast Cancer Screening-Mammogram 1956 Colon Cancer Screening-Colonoscopy 1955 Depression Screening 1955 Hepatitis C Screening 1956 Osteoporosis Screening-Bone Density Scan 1956 Hepatitis B Screening 1974 Pneumococcal vaccine 65+ (1 of 1 - PCV) 2006 Zoster Vaccine (1 of 2) 2006 DTaP/Tdap/Td Vaccine (1 - Tdap) 03/29/2012 2 Well Visit 65+ 2021 Covid-19 Vaccine (3 - season) 2024, 05/03/2021 Fall Risk Assessment 04/05/2025 04/05/2024 Influenza Vaccine (Season Ended) 2025 08/18/20 22 Medical Devices Implanted Type Area Functional Analyst Device Identifier Shelf Expiration Date Model / Serial / Lot Plate N/A: Spine Lumbar [facility] HU[employer]NA CHOICE MEDICARE PPO HU[employer] CHOICE MEDICARE PPO HU[employer]NA CHOICE MEDICARE PPO IDPA IDPA Advance Directives For more information, please contact: [phone] * Full Code (Latest Code Status on File) Date Activated Date Inactivated Comments 04/04/2024 3:46 AM 04/05/2024 7:14 PM * Full Code Date Activated Date Inactivated Comments 12/14/2022 2:06 AM 12/15/2022 6:15 PM * Full Code Date Activated Date Inactivated Comments 12/02/2022 2:37 PM 12/08/2022 7:41 PM * Full Code Date Activated Date Inactivated Comments 11/30/2022 5:48 PM 12/02/2022 2:37 PM * Full Code Date Activated Date Inactivated Comments 11/30/2022 1:05 PM 11/30/2022 5:48 PM Care Teams Executive Manager Relationship Specialty Start Date End Date Virginie Cifuentes MD [address] [place] [address] PCP - General Family Medicine 11/30/22 Dylan Bravo MD [address] [place] [address] Consulting Physician Cardiothoracic Surgery 11/30/22 Arnaud Richardson MD [address] [facility] [address] SUR[address] ADULT CARDIO, [address] [place] [address] Consulting Physician Cardiothoracic Surgery 11/30/22
--- OUTSIDE RECORDS SUMMARY | 2025-02-12 00:31 | XMS_ITS | Continuity of Care Document ---
Author Organization 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, [address], [place], [place], [id number], tel:[phone] [facility] No Information Aislinn Estrada. [address], [place], [place], [id number], [place]. tel:[phone] Referring Provider: Dragan Hickey, [address], [place], [address]. tel:[phone] Family History Family Member Type Diagnosis Age At Onset No Information Payers Payer name Insurance type Covered libertarian ID Authoriza tion(s) [facility] ACCESS CHOICE [id number] Social History Type Description Quantity Date Captured Comments Sex Female Smoking Status No Information Chief Complaint And Reason For Visit No Information Reason For Referral Reason For Referral No Information History Of Present Illness Encounter Date Complaint History Of Prese nt Illness No Information Functional Status Date Functional Assessmen t No Information Instructions Date Instruction Additional Infor mation No Information Assessments Type Assessment Date No Information Patient Care Teams Name Effective Dates (start - stop) Status Members No Information
--- OUTSIDE RECORDS SUMMARY | 2025-02-12 00:31 | XMS_ITS | Referral Summary ---
Author Organization [facility] Address [address] [place] [address] Care Team Providers Care Turn Out Worker Name Role Phone Virginie Cifuentes MD Primary Care Provider + Dylan Bravo MD Unavailable [phone] Arnaud Richardson MD Unavailable [phone] Allergies No known active allergies Medications levothyroxine [...] (11/25/2022): Added automatically from request for surgery [id number] Resolved Problems Problem Noted Date Diagnosed Date Resolved Date Acute congestive heart failu re, unspecified heart failure type 12/12/2022 12/15/2022 Gastrointestinal hemorrhage 12/12/2022 12/15/2022 Overview (12/14/2022): Added automatically from request for surgery [id number] Social History Tobacco Use Types Packs/Day Years [...] materials from doctor or pharmacy Never 12/12/2022 [facility] Utilities Answer Date Recorded In the past 12 months has th e electric, gas, oil, or water [employer] threatened to shut off services in your [...] often do you attend chur ch or advent services? Never 04/04/2024 Do you belong to any clubs o r organizations such as anabaptist groups, unions, fraternal or athletic groups, or [...] place to sleep or slept in a jail (including now)? No 12/05/2022 Housing Stability Vital Sign Answer Cm e Recorded In the last 12 months, was t here a time when you were not able to pay the mortgage or rent on time? No 04/04/2024 In the past 12 months, how m any times have you moved where you were living? 0 04/04/2024 At any time in the past 12 m [facility], were you homeless or living in a jail (including now)? No 04/04/2024 Personal Safety Answer Date Recorded Have you ever been in or are you currently in a harmful physical or emotional relationship or is someone making you feel afraid or unsafe? 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 Gender Identity Not on file Sexual Orientation Not on file Last Filed Vital Signs Vital Sign Reading [...] 04/04/2024 3:04 AM CDT Plan of Treatment Not on file Medical Devices Implanted Type Area Convention Planner Device Identifier Shelf Expiration Date Model / Serial / Lot Plate N/A: Spine Lumbar Insurance IDPA [facility] IDPA [employer] CHOICE MEDICARE PPO [employer] CHO[employer] MEDICARE PPO [employer]ICE MEDICARE PPO IDPA IDPA Advance Directives For more information, please contact: [phone] * Full Code (Latest Code Status on [...] 1:05 PM 11/30/2022 5:48 PM Care Teams Turn Out Worker Relationship Specialty Start Date End Date Virginie Cifuentes MD [address] [place] [address] PCP - General Family Medicine 11/30/22 Dylan Bravo MD [address] [place] [id number] Consulting Physician Cardiothoracic Surgery 11/30/22 Arnaud Richardson MD [address] [facility] [address] ADULT [facility]ARD[facility], [address] [address] Consulting Physician Cardiothoracic Surgery 11/30/22
--- OUTSIDE RECORDS SUMMARY | 2025-02-12 00:31 | XMS_ITS | Data Portability ---
Author Organization [place] - [facility] OFFICE Address [address] [place] [address] Assessment Encounter Date Assessment Date Assessment LastModified by Organization Details LastModified Time 12/12/2023 12/12/2023 Patient Examined by LUIS FELIPE Stokes, Also Documentation reviewed and approved by supervising physician rhett Not available 12/12/2023 15:40:37 Plan of Treatment Reminders Order Date Submit Date Provider Last Modified By Organization Details Last Modified Time Details Appointments ESTABLISH ED PATIENT DETAILED 2024 03:30P M Fidencio Rutledge i, MD Not available Not available Not available Lab None recorded. Referral None recorded. Procedures None recorded. Surgeries None recorded. Imaging None recorded. Medication Orders furosemid e 40 mg tablet 2023 024 [facility][id number], [address], [place], [place], [id number], 04/30/2024 11:12:20 atorvasta tin 80 mg tablet 2023 024 [facility] #[id number], [address], [place], [place], [id number], 04/30/2024 11:12:20 metoprolo l succinate ER 25 mg tablet,ex tended release 24 hr 2023 024 [facility] #88403, [address] [place], [place], [id number], 04/30/2024 11:12:21 Jardiance 10 mg tablet 2023 024 [facility] #52506, [address], [place], [place], [id number], 12/12/2023 15:49:20 potassium chloride ER 10 mEq tablet,ex tended release 2023 024 [facility] #[id number], [address], [place], [place], [id number], 12/12/2023 15:49:23 furosemid e 40 mg tablet 2023 024 [facility] #[id number], [address], [place], [place], [id number], 12/12/2023 15:49:21 atorvasta tin 80 mg tablet 2023 024 [facility] #[id number], [address], [place], [place], [id number], 12/12/2023 15:49:18 metoprolo l succinate ER 25 mg tablet,ex tended release 24 hr 2023 024 [facility] #31210, [address], [place], [place], [id number], 12/12/2023 15:49:18 aspirin 81 mg tablet,de layed release 2023 024 [facility] #30291, [address], [place], [place], [id number], 12/12/2023 15:49:20 Jardiance 10 mg tablet 2022 023 [email or web address] #[id number], [address], [place], [place], [id number], 12/12/2023 15:15:49 Patient TargetsNo targets recorded. Patient Instructions Encounter Date Encounter Id Patient Instructions Last Modified By Organization Details Last Modified Time 04/29/2023 [id number] Weight loss 20 pounds Exercise advised Low cholesterol diet advised Low sodium diet advised. [email or web address] Not available 04/29/2023 10:08:42 12/12/2023 [id number] Exercise advised Low cholesterol diet advised Low sodium diet advised. [email or web address] Not available 12/12/2023 15:43:23 Reason for Referral None Reported. Results Created Date Observation Date Name Description Value Unit Range Abnormal Flag Note LastModifiedBy Organization Detail LastModifiedTime 06/26/2006/16/2023 sleep study No observ ation record ed. [email or web address] Not Available 2023 11:30:10 12/19/19 24 12/12/2023 elect rocar diogr am No observ ation record ed. Not Available 2023 14:26:44 01/05/20 24 01/03/2024 US, echoc ardio gram No observ ation record ed. [email or web address] Not Available 2023 04:07:57 05/01/20 24 04/03/2024 CT, abdom en + pelvi s, w/ contr ast No observ ation record ed. Not Available 2023 11:14:03 05/01/20 24 04/04/2024 rest and exerc ise ambul ation test (PROC ) No observ ation record ed. Not Available 2023 11:16:01 05/01/20 24 04/04/2024 US, echoc ardio gram No observ ation record ed. Not Available 2023 11:18:07 06/25/20 24 06/12/2024 US, doppl er, arter ial No observ ation record ed. [email or web address] Not Available 2023 12:27:11 07/24/20 24 07/23/2024 elect rocar diogr am No observ ation record ed. [email or web address] Not Available 2024 18:26:26 01/30/20 25 01/28/2025 elect rocar diogr am No observ ation record ed. Not Available 2024 09:49:37 Result Notes None recorded. Problems Name Problem SNOMED Code Status Onset Date Resolution Date Notes Provider Name and Address Organization Details Recorded Time Coronary atherosclerosi s 125669447 Active 2021 Quintana Mesto null, [place] - [facility] 3 11:51:37 Atypical chest pain 820084873 Active 2022 Quintana Mesto null, [place] - [facility] 3 11:51:01 Dyspnea 738944860 Active 2022 Quintana Mesto null, [place] - [facility] 3 11:51:10 Family history of coronary arterioscleros is 426283253 Active 2022 Lilian Sainito null, [place] - [facility] 3 11:51:20 Dyslipidemia 452499930 Active 2022 Quintana Mesto null, [place] - [facility] 3 11:51:32 Problem Notes None recorded. Procedures Surgical History Date Name Laterality Status Provider Name and Address Organization Details Recorded Time coronary artery bypass grafts x 2 completed Lilian Sainijazmyne [place] - [facility] 01/11/2023 22:13:47 Imaging Results Imaging Date Name Status LastModified by Organization Details LastModified Time 06/16/2023 sleep study completed Information n ot available 11/06/2023 11:30:10 12/12/2023 electrocardiogram completed Informa tion not available 12/21/2023 14:26:44 01/03/2024 US, echocardiogram completed Inform ation not available 01/08/2024 04:07:57 04/03/2024 CT, abdomen + pelvis, w/ contrast completed Information not available 05/01/2024 11:14:03 04/04/2024 rest and exercise ambulation test (PROC) completed Information not available 05/01/2024 11:16:01 04/04/2024 US, echocardiogram completed Inform ation not available 05/01/2024 11:18:07 06/12/2024 US, doppler, arterial completed Information not available 07/21/2024 12:27:11 07/23/2024 electrocardiogram completed Informa tion not available 01/27/2025 18:26:26 01/28/2025 electrocardiogram completed Informa tion not available 01/30/2025 09:49:37 Procedure Notes None recorded. Medical Equipment None Reported. Allergies No known drug allergies Medications Name Sig Start Date Stop Date Status Note LastModified by Organization Details LastModified Time furosemide 40 mg tablet TAKE 1 TABLET BY MOUTH EVERY DAY active Not Available Not Available No t Available atorvastati n 80 mg tablet TAKE 1 TABLET BY MOUTH EVERY DAY active Not Available Not Available No t Available gabapentin 600 mg tablet TAKE 1 TABLET BY MOUTH FOUR TIMES DAILY 10/11 completed Not Available Not Available Not Available ropinirole 1 mg tablet TAKE 1 TABLET BY MOUTH TWICE DAILY active Not Available Not Available No t Available citalopram 40 mg tablet TAKE 1 TABLET BY MOUTH EVERY DAY active Not Available Not Available No t Available azithromyci n 250 mg tablet active Not Available Not Available Not Available tizanidine 4 mg tablet TAKE 1 TABLET BY MOUTH EVERY 6 HOURS NEEDED active Not Available Not Available No t Available fluconazole 150 mg tablet TAKE 1 TABLET BY MOUTH EVERY 72 HOURS FOR 9 DAYS DIRECTED active Not Available Not Available No t Available sumatriptan 100 mg tablet TAKE 1 TABLET BY MOUTH TWICE DAILY NEEDED active Not Available Not Available No t Available hydrocodone 5 mg-acetamin ophen 325 mg tablet TAKE 1 TABLET BY MOUTH TWICE DAILY NEEDED FOR PAIN TAKE 1 TABLET BY MOUTH EVERY 8 HOURS NEEDED active Not Available Not Available No t Available meloxicam 15 mg tablet TAKE 1 TABLET BY MOUTH EVERY DAY 10/11 completed Not Available Not Available Not Available spironolact one 25 mg-hydrochl orothiazide 25 mg tablet TAKE 1 TABLET BY MOUTH EVERY DAY 12/12 completed Not Available Not Available Not Available metronidazo le 0.75 % (37.5 mg/5 gram) vaginal gel INSERT ONE APPLICATO RFUL VAGINALLY AT BEDTIME FOR 5 NIGHTS active Not Available Not Available No t Available prednisone 20 mg tablet 12/12 completed Not Available Not Available Not Available potassium chloride ER 10 mEq tablet,exte nded release TAKE 2 TABLETS BY MOUTH EVERY DAY active Not Available Not Available No t Available Klor-Con 20 mEq oral packet 12/12 completed Not Available Not Available Not Available phentermine 37.5 mg tablet TAKE 1 TABLET BY MOUTH EVERY DAY 12/12 completed Not Available Not Available Not Available clopidogrel 75 mg tablet 12/12 completed Not Available Not Available Not Available levofloxaci n 250 mg tablet TAKE 1 TABLET BY MOUTH TWICE DAILY FOR 10 DAYS 10/11 completed Not Available Not Available Not Available ciprofloxac in 500 mg tablet active Not Available Not Available Not Available hydrocodone 10 mg-acetamin ophen 325 mg tablet TAKE 1 TABLET BY MOUTH FOUR TIMES DAILY NEEDED active Not Available Not Available No t Available aspirin 81 mg tablet,cecil yed release TAKE 1 TABLET BY MOUTH EVERY DAY active Not Available Not Available No t Available tramadol 50 mg tablet TAKE 1 TABLET BY MOUTH THREE TIMES DAILY NEEDED FOR PAIN active Not Available Not Available No t Available triamcinolo ne acetonide 0.1 % topical cream APPLY TO THE AFFECTED AREA TWICE DAILY FOR 90 DAYS active Not Available Not Available No t Available levothyroxi ne 75 mcg tablet TAKE 1 TABLET BY MOUTH EVERY DAY 10/11 completed Not Available Not Available Not Available meloxicam 7.5 mg tablet TAKE 1 TABLET BY MOUTH TWICE DAILY NEEDED FOR 90 DAYS active Not Available Not Available No t Available levothyroxi ne 88 mcg tablet TAKE 1 TABLET BY MOUTH DAILY 12/12 completed Not Available Not Available Not Available citalopram 20 mg tablet TAKE 1 TABLET BY MOUTH IN THE MORNING active Not Available Not Available No t Available potassium chloride ER 20 mEq tablet,exte nded release(par t/cryst) TAKE 1 TABLET BY MOUTH TWICE DAILY active Not Available Not Available No t Available amiodarone 400 mg tablet TAKE 1 TABLET BY MOUTH EVERY DAY active Not Available Not Available No t Available pantoprazol e 40 mg tablet,cecil yed release TAKE 1 TABLET BY MOUTH EVERY DAY active Not Available Not Available No t Available levothyroxi ne 125 mcg tablet TAKE 1 TABLET BY MOUTH EVERY DAY BEFORE A MEAL FOR 90 DAYS active Not Available Not Available No t Available ropinirole 0.5 mg tablet TAKE 1 TABLET BY MOUTH TWICE DAILY active Not Available Not Available No t Available clotrimazol e-betametha sone 1 %-0.05 % topical cream APPLY TO THE AFFECTED AREA TWICE DAILY TO AFFECTED AREA UNTIL SYMPTOMS RESOLVE active Not Available Not Available No t Available nitroglycer in 0.[address] 1 TABLET UNDER THE TONGUE NEEDED FOR CHEST PAIN. MAY REPEAT EVERY 5 MINUTES UP TO A TOTAL OF 3 DOSES. IF NO RELIEF SEEK MEDICAL ATTENTION . active Not Available Not Available No t Available gabapentin 300 mg capsule TAKE 1 CAPSULE BY MOUTH FOUR TIMES DAILY 10/11 completed Not Available Not Available Not Available zolpidem 5 mg tablet TAKE 1 TABLET BY MOUTH EVERY DAY NEEDED active Not Available Not Available No t Available metoprolol succinate ER 25 mg tablet,exte nded release 24 hr TAKE 1 TABLET BY MOUTH EVERY DAY active Not Available Not Available No t Available levofloxaci n 750 mg tablet TAKE 1 TABLET BY MOUTH DAILY 04/29 completed Not Available Not Available Not Available methylpredn isolone 4 mg tablets in a dose pack FOLLOW PACKAGE DIRECTION S active Not Available Not Available No t Available albuterol sulfate HFA 90 mcg/actuati on aerosol inhaler INHALE 1 PUFF BY MOUTH EVERY 4 HOURS NEEDED FOR SHORTNESS OF BREATH OR WHEEZING active Not Available Not Available No t Available ondansetron 4 mg disintegrat ing tablet DISSOLVE 2 TABLETS ON THE TONGUE TWICE DAILY FOR 15 DAYS NEEDED FOR NAUSEA active Not Available Not Available No t Available doxycycline hyclate 100 mg tablet TAKE 1 TABLET BY MOUTH TWICE DAILY FOR 7 DAYS 04/29 completed Not Available Not Available Not Available loratadine 10 mg tablet TAKE 1 TABLET BY MOUTH EVERY DAY FOR 90 DAYS active Not Available Not Available No t Available naproxen 500 mg tablet TAKE 1 TABLET BY MOUTH TWICE DAILY 10/11 completed Not Available Not Available Not Available levothyroxi ne 112 mcg tablet TAKE 1 TABLET BY MOUTH DAILY active Not Available Not Available No t Available amoxicillin 875 mg-potassiu m clavulanate 125 mg tablet TAKE 1 TABLET BY MOUTH EVERY 12 HOURS FOR 7 DAYS DIRECTED active Not Available Not Available No t Available amoxicillin 500 mg-potassiu m clavulanate 125 mg tablet TAKE 1 TABLET BY MOUTH TWICE DAILY FOR 7 DAYS 10/11 completed Not Available Not Available Not Available oxycodone 5 mg tablet TAKE 1 TABLET BY MOUTH EVERY 4 HOURS NEEDED FOR PAIN 12/12 completed Not Available Not Available Not Available bupropion HCl XL 150 mg 24 hr tablet, extended release TAKE 1 TABLET BY MOUTH EVERY DAY 12/12 completed Not Available Not Available Not Available amiodarone 100 mg tablet active Not Available Not Available Not Available metoprolol tartrate 25 mg tablet 1tab daily active Not Available Not Available No t Available pregabalin 150 mg capsule TAKE 1 CAPSULE BY MOUTH TWICE DAILY 10/11 completed Not Available Not Available Not Available pregabalin 200 mg capsule TAKE 1 CAPSULE BY MOUTH TWICE DAILY TAKE 1 CAPSULE BY MOUTH 2 TIMES DAILY active Not Available Not Available No t Available pregabalin 225 mg capsule TAKE 1 CAPSULE BY MOUTH TWICE DAILY active Not Available Not Available No t Available Symbicort 160 mcg-4.5 mcg/actuati on HFA aerosol inhaler INHALE 2 PUFFS BY MOUTH EVERY 12 HOURS active Not Available Not Available No t Available FeroSul 325 mg (65 mg iron) tablet TAKE 1 TABLET BY MOUTH DAILY WITH BREAKFAST active Not Available Not Available No t Available Stimulant Laxative Plus 8.6 mg-50 mg tablet TAKE 1 TABLET BY MOUTH DAILY NEEDED FOR CONSTIPAT ION active Not Available Not Available No t Available Jardiance 10 mg tablet Take 1 tablet every day by oral route. active Not Available Not Available No t Available Vraylar 1.5 mg capsule TAKE 1 CAPSULE BY MOUTH EVERY DAY DIRECTED active Not Available Not Available No t Available metoprolol succinate ER 25 mg capsule sprinkle, ext. release 24 hr Take 1 capsule every day by oral route. active Not Available Not Available No t Available tramadol 100 mg tablet TAKE 1 TABLET THREE TIMES DAILY 10/11 completed Not Available Not Available Not Available Trelegy Ellipta 200 mcg-62.5 mcg-25 mcg powder for inhalation INHALE 1 PUFF BY MOUTH DAILY active Not Available Not Available No t Available Ozempic 1 mg/dose (4 mg/3 mL) subcutaneou s pen injector INJECT 1 MG UNDER THE SKIN EVERY WEEK 01/28 completed Not Available Not Available Not Available Ozempic 2 mg/dose (8 mg/3 mL) subcutaneou s pen injector INJECT 2 MG UNDER THE SKIN EVERY WEEK 01/28 completed Not Available Not Available Not Available Ozempic 0.25 mg or 0.5 mg (2 mg/3 mL) subcutaneou s pen injector INJECT 0.25 MG UNDER THE SKIN EVERY WEEK 12/12 completed Not Available Not Available Not Available Vitals Date Recorded Body height Body mass index (BMI) Body weight Heart rate Respiratory rate Oxygen saturation Oxygen saturation in Arterial blood by Pulse oximetry Systolic blood pressure Diastolic blood pressure Provider Name and Address Organization Details Last Updated DateTime 3 152.4 cm 47.8 kg/m2 085668. 13 g 72 /min 16 /min 97 % 97 % 112 mm[Hg] 72 mm[Hg] Vipin Nixon [facility] 3 09:54:17 Date Recorded Body height Body mass index (BMI) Body weight Heart rate Oxygen saturation Oxygen saturation in Arterial blood by Pulse oximetry Systolic blood pressure Diastolic blood pressure Provider Name and Address Organization Details Last Updated DateTime 4 152.4 cm 47.7 kg/m2 824503. 54 g 57 /min 95 % 95 % 136 mm[Hg] 82 mm[Hg] Liv Fournierran [facility] 4 15:20:17 Date Recorded Body height Body mass index (BMI) Body weight Heart rate Oxygen saturation Oxygen saturation in Arterial blood by Pulse oximetry Systolic blood pressure Diastolic blood pressure Provider Name and Address Organization Details Last Updated DateTime 4 152.4 cm 44.9 kg/m2 536439. 25 g 66 /min 96 % 96 % 136 mm[Hg] 71 mm[Hg] Annalee Multani [facility] 4 10:31:28 Date Recorded Body height Body mass index (BMI) Body weight Heart rate Oxygen saturation Oxygen saturation in Arterial blood by Pulse oximetry Systolic blood pressure Diastolic blood pressure Provider Name and Address Organization Details Last Updated DateTime 4 152.4 cm 44.7 kg/m2 672450. 93 g 61 /min 95 % 95 % 130 mm[Hg] 76 mm[Hg] Annalee Rangel [facility] 4 15:18:55 Date Recorded Body height Body mass index (BMI) Body weight Heart rate Respiratory rate Oxygen saturation Oxygen saturation in Arterial blood by Pulse oximetry Systolic blood pressure Diastolic blood pressure Provider Name and Address Organization Details Last Updated DateTime 5 152.4 cm 45.5 kg/m2 362138. 02 g 74 /min 16 /min 95 % 95 % 128 mm[Hg] 70 mm[Hg] Vipin Nixon [facility] 5 16:47:41 Social History Question Answer Notes LastModified by Organizat ion Details LastModified Time In The 14 Days Before Symptom Onset, Have You Had Close Contact With A Laboratory-confirm ed COVID-19 While That Case Was Ill? No Information n ot available 01/12/2023 Have You Been To An Area Known To Be High Risk For COVID-19? No Information not available 01/12/2023 What Is Your Relationship Status? Information not available 06/27/2023 Are You Sexually Active? No Information not available 01/12/2023 Do You Feel Stressed (tense, Restless, Nervous, Or Anxious, Or Unable To Sleep At Night)? [id number] Information not available 01/12/2023 Sex: Unknown Functional Status None recorded. Mental Status None recorded. Family History Nothing Reported. Medical History Condition Response Coronary Artery Disease Y Hyperlipidemia Y Gynecological HistoryNo gynecological history recorded. Obstetrics History GPAL:G 0 P 0 0 0 0 Past Encounters Encounter ID Performer Location Encounter Start Date Encounter Closed Date Diagnosis/Indication Diagnosis SNOMED-CT Code Diagnosis ICD10 Code Diagnosis Note [id number] Fidencio Dickerson [facility] [address] [place] [id number] 10/11/2022 16:00:28 10/11/2022 17:00:07 Atypical chest pain 274604164 R07.89 Treadmill Myoview Stress test, has high Bergholz Risk score. Has Known CAD, or CAD risk equivalent . To look for any ischemia. Dyspnea 576484093 R06.00 Obtain echo to evaluate for structural /functiona l disease. Family his tory of coronary arteriosclerosis 752476858 Z82.49 Dyslipidemia 092335531 E 78.5 Needs to keep LDL less than 70, and HDL more than 40LDL 117 [id number] Fidencio Dickerson MD [facility] [address] [place] [id number] 11/15/2022 14:06:27 11/15/2022 14:57:24 Atypical chest pain 629530550 R07.89 positive stress test at the inferior leads The patient will be scheduled for left heart catheteriz ation, with coronary angiogram, and possible PTCA/Stent . The procedure was discussed with the patient, and risks, benefits, and alternativ e options were explained. The patient was given informatio n about heart catheteriz ation and interventi onal procedures . The patient agrees to proceed. Dyspnea 119820426 R06.00 ECHO 10/19/22:L V chamber size is normal,the re is normal global systolic function and contractil ity,LVEF is 55-60%. Family his tory of coronary arteriosclerosis 244130630 Z82.49 The patient will be scheduled for left heart catheteriz ation, with coronary angiogram, and possible PTCA/Stent . The procedure was discussed with the patient, and risks, benefits, and alternativ e options were explained. The patient was given informatio n about heart catheteriz ation and interventi onal procedures . The patient agrees to proceed. Dyslipidemia 983572056 E 78.5 Needs to keep LDL less than 70, and HDL more than 40LDL 117 [id number] Fidencio Dickerson MD [facility] [address] [place] [id number] 01/12/2023 15:36:36 01/12/2023 16:43:06 Atypical chest pain 173287336 R07.89 s/p [facility] Dyspnea 765438140 R06.00 Obtain echo to evaluate for structural /functiona l disease. Family his tory of coronary arteriosclerosis 463447990 Z82.49 Dyslipidemia 621537662 E 78.5 Needs to keep LDL less than 70, and HDL more than 40LDL 117 Paroxysmal atrial fibrillation 737714512 I48.0 now on Amiodarone will cut n 11/07 [id number] Fidencio Dickerson MD [facility] [address] [place] [id number] 04/29/2023 09:44:24 04/29/2023 10:12:11 Atypical chest pain 126725512 R07.89 s/p [facility]G [facility] Dyspnea 056601432 R06.00 with Normal Left ventricula r systolic function Family his tory of coronary arteriosclerosis 840175387 Z82.49 Dyslipidemia 838825473 E 78.5 Needs to keep LDL less than 70, and HDL more than 40LDL 117 Paroxysmal atrial fibrillation 256461376 I48.0 now on Amiodarone [place] to [place] Obstructiv e sleep apnea syndrome 53779509 G47.33 Home sleep studyHe has leg swelling, fatigue, and snoring [id number] ENZEKE RIOS [facility] [place] [address] 12/12/2023 14:59:01 12/12/2023 15:55:55 Dyspnea 547754266 R06.00 with Normal Left ventricula r systolic functionre peat her echo Family his tory of coronary arteriosclerosis 017326526 Z82.49 s/p by pass 2022 Dyslipidemia 729994026 E 78.5 Needs to keep LDL less than 70, and HDL more than 40LDL 127 done 05/2023wil l restarting her atorvastat in 80 mg dailystart fish oil Paroxysmal atrial fibrillation 037592403 I48.0 now on Amiodarone [place] to [place] after her surgerySR resolved Obstructiv e sleep apnea syndrome 66058768 G47.33 Home sleep studyHe has leg swelling, fatigue, and snoring Coronary arteriosclerosis 53135299 I25.10 S/p by pass surgery 2022will repeat her echo Coronary atherosclerosis 827990330 I25.10 Swelling o f bilateral lower limbs 935161988 M79.89 increased lasix to 40 mg BID for two days and then go back to 40 mg daily repeat her echo Atypical chest pain 1025 38012 R07.89 s/p [facility] [id number] Fiona Escobar [facility] [address] [place] [address] 04/30/2024 10:23:11 04/30/2024 11:18:59 Dyspnea 824462670 R06.00 with Normal Left ventricula r systolic function Family his tory of coronary arteriosclerosis 287970687 Z82.49 s/p by pass 2022 Dyslipidemia 653094431 E 78.5 Needs to keep LDL less than 70, and HDL more than 40LDL 51 Paroxysmal atrial fibrillation 246153281 I48.0 now on Amiodarone [place] to [place] after her surgerySR resolved Obstructiv e sleep apnea syndrome 84059737 G47.33 Home sleep study was positive, now on CpapHe has leg swelling, fatigue, and snoring Coronary arteriosclerosis 10268055 I25.10 S/p by pass surgery 2022 Had ECHO on 01/03/24 showed LV chamber size is normal, LVEF 55-60%, LV wall thickness is mildly increased, LV relaxation is impaired, there is trace aortic regurgitat ion, there is trace tricuspid regurgitat ion, estimated RVSP systolic pressure is 42 mmHg. Coronary atherosclerosis 754144331 I25.10 Swelling o f bilateral lower limbs 890017983 M79.89 increased lasix to 40 mg BID for two days and then go back to 40 mg daily Atypical chest pain 1025 83471 R07.89 s/p [facility]G [facility] Peripheral vascular disease 861728610 I73.9 Will get arterial doppler, to evaluate severity of peripheral vascular disease [id number] Fidencio Dickerson MD [facility] [address] [place] [address] 07/23/2024 14:55:33 07/23/2024 15:48:33 Family history of coronary arteriosclerosis 757607176 Z82.49 s/p by pass 2022 Dyslipidemia 741428718 E 78.5 Needs to keep LDL less than 70, and HDL more than 40LDL 51 Paroxysmal atrial fibrillation 025960244 I48.0 now on Amiodarone [place] to [place] after her surgerySR resolved Obstructiv e sleep apnea syndrome 45201259 G47.33 Home sleep study was positive, now on CpapHe has leg swelling, fatigue, and snoring Coronary arteriosclerosis 88091427 I25.10 S/p bypass surgery 2022will repeat her echo Coronary atherosclerosis 971391257 I25.10 Swelling o f bilateral lower limbs 473269384 M79.89 increased lasix to 40 mg BID for two days and then go back to 40 mg daily Atypical chest pain 1025 95607 R07.89 s/p [facility] Peripheral vascular disease 317220019 I73.9 Will get arterial doppler, to evaluate severity of peripheral vascular disease [id number] Fidencio Dickerson MD [facility] [address] [place] [address] 01/28/2025 16:10:24 01/28/2025 17:05:29 Family history of coronary arteriosclerosis 815024589 Z82.49 s/p bypass 2022 Dyslipidemia [id number] E 78.5 Needs to keep LDL less than 70, and HDL more than 40LDL 51 Paroxysmal atrial fibrillation [id number] I48.0 now on Amiodarone OK to DC after her surgerySR resolved Obstructiv e sleep apnea syndrome [id number] G47.33 Home sleep study was positive, now on CpapHe has leg swelling, fatigue, and snoring Coronary arteriosclerosis [id number] I25.10 S/p bypass surgery 2022 ECHO 04/04/25: The left ventricle is normal in size. There is normal left ventricula r wall thickness. Left ventricula r systolic function is normal. Ejection Fraction =55-60%. Grade l diastolic dysfunctio n, (abnormal relaxation pattern). Compared to echo 12/13/2022 , no significan t change,. Coronary atherosclerosis [id number] I25.10 Swelling o f bilateral lower limbs [id number] M79.89 increased lasix to 40 mg BID for two days and then go back to 40 mg daily Peripheral vascular disease 907023463 I73.9 Us, Doppler, Arterial 06/12/24: Normal ankle-brac hial index. Health Concerns Section Related Observation LastModified by Organization Detai ls LastModified Time None Recorded Concern Status LastModified by Organization Details LastModified Time None Recorded Advance Directives Directive None Recorded Payers Encounter Date Sequence Insurance Name Policy Number Policy Mack Covered Member ID Mack Member ID Guarantor Name 04/29/2023 1 [employer] (MEDICARE REPLACEMENT/A DVANTAGE - PPO) Shantelle S Pfalzgraf [id number] Shantelle Pfalzgraf 04/29/2023 2 [place] Shantelle Pfalzgraf [id number] Shantelle Pfalzgraf 12/12/2023 2 [place] [facility] [place] PUBLIC AID Shantelle Pfalzgraf [id number] Shantelle Pfalzgraf 12/12/2023 1 [employer] (MEDICARE REPLACEMENT PPO) [id number] Shantelle S Pfalzgraf [id number] Shantelle Pfalzgraf 04/30/2024 2 [place] [facility] [place] [facility] PUBLIC AID Shantelle Pfalzgraf [id number] Shantelle Pfalzgraf 04/30/2024 1 [employer] (MEDICARE REPLACEMENT PPO) [id number] Shantelle S Pfalzgraf [id number] Shantelle Pfalzgraf 07/23/2024 1 [employer] (MEDICARE REPLACEMENT PPO) [id number] Shantelle S Pfalzgraf [id number] Shantelle Pfalzgraf 01/28/2025 1 [employer] (MEDICARE REPLACEMENT PPO) [id number] Pieter Ewingzgruziel [id number] Shantelle Banegas Notes Date Note Type Note Provider Name and Address Organization Details Recorded Time 04/29/2023 text/html 04/29/23CC : Car diac follow Onur BANEGAS is a 67 years-old Female with h/o Coronary arteriosclerosis and Hyperlipidemia is here for 1 month follow up with ECHO results. She was last seen in the clinic on 01/12/23, since then she has more fatigue, and dyspnea on exertionShe denies ER visits and hospitalizations since she was last seen. Today reports:Denies chest pain.Denies shortness of breath at rest. Has mild dyspnea on exertion.No orthopnea. No PNDs.Denies heart palpitations.Denies dizziness. Denies syncope or near syncope.No ankle or leg edema.No major bleeding events.No reported side effects from medications. Taking medications as prescribed with no missed doses.Denies snoring, daytime somnolence and AM headache.*Last LDL was 117 .Pt takes atorvastatin 80 mg. ECHO 01/23/23:LV chamber size is normal,LVEF 65-70%,LV relaxation is impaired,Left atrium chamber is mildly dilated,the aortic valve is mildly calcified,there is minimal aortic regurgitation. Previously: She was in the [facility] on 11/28 for CABG x 2. 12/08/22 CBC: WBC 7.2, HGB 7.2, HCT 23.4, PLT 172, CMP: NA 135, K4.0, CL 98, CO2 29, BUN 16, CR 0.80, ALT 8, AST 15, MG 2.0, PT/INR: PT 16.2, INR 1.3. She had occasional chest pain and indigestion that last for few minutes.She is also having occasional dyspnea on exertion. *She had a positive stress test a the inferior lead that is medium in size. Had coronary atherosclerosis due to calcified coronary lesion, had COVID in Nov, since then had more cough and chest pain Fidencio Dickerson MD [address] [place], [address], [place] - [facility] 04/29/2023 10:08:54 12/12/2023 text/html 12/12/23CC : Car diac follow up dyspnea on exertionDiane PFALZGRAF is a 68 years-old Female with h/o Coronary arteriosclerosis , GABG 2022, TIM on CPAP, and Hyperlipidemia is here for 6 month follow up. She was last seen in the clinic on 04/29/23, since then she is doing well. LDL was 127 done 05/2023 and she is not taking any medicationShe denies ER visits and hospitalizations since she was last seen. Today reports:Denies chest pain.Denies shortness of breath at rest. Has mild dyspnea on exertion.No orthopnea. No PNDs.Denies heart palpitations.Denies dizziness. Denies syncope or near syncope.yes ankle or leg edema. on lasix 40 mgNo major bleeding events.No reported side effects from medications. Taking medications as prescribed with no missed doses.Denies snoring, daytime somnolence and AM headache.*Last LDL was 117 .Pt takes atorvastatin 80 mg. 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 Previously:She has more fatigue, and dyspnea on exertion ECHO 01/23/23:LV chamber size is normal,LVEF 65-70%,LV relaxation is impaired,Left atrium chamber is mildly dilated,the aortic valve is mildly calcified,there is minimal aortic regurgitation. She was in the [facility] on 11/28 for CABG x 2. She had occasional chest pain and indigestion that last for few minutes.She is also having occasional dyspnea on exertion. *She had a positive stress test a the inferior lead that is medium in size. Had coronary atherosclerosis due to calcified coronary lesion, had COVID in Nov, since then had more cough and chest pain MICHAEL Hurley - [facility] 12/12/2023 15:49:16 04/30/2024 text/html 04/30/24CC : Car diac follow Onur BANEGAS is a 68 years-old Female with h/o Coronary arteriosclerosis , GABG 2022, TIM on CPAP, and Hyperlipidemia is here for follow up with ECHO results. She was last seen in the clinic on 12/12/23, since then she was in the hospital with UTI, had chest painShe denies ER visits and hospitalizations since she was last seen. Today reports:pt is having pain in left leg .Denies chest pain.Denies shortness of breath at rest. Has mild dyspnea on exertion.No orthopnea. No PNDs.Denies heart palpitations.Denies dizziness. Denies syncope or near syncope.No ankle or leg edema.No major bleeding events.No reported side effects from medications. Taking medications as prescribed with no missed doses.Denies snoring, daytime somnolence and AM headache.*Last LDL was 117 .Pt takes atorvastatin 80 mg. *Had ECHO on 01/03/24 showed LV chamber size is normal, LVEF 55-60%, LV wall thickness is mildly increased,LV relaxation is impaired, there is trace aortic regurgitation, there is trace tricuspid regurgitation, estimated RVSP systolic pressure is 42 mmHg. 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 She has more fatigue, and dyspnea on exertion She was in the [facility] on 11/28 for CABG x 2. She had occasional chest pain and indigestion that last for few minutes.She is also having occasional dyspnea on exertion. *She had a positive stress test a the inferior lead that is medium in size. Had coronary atherosclerosis due to calcified coronary lesion, had COVID in Nov, since then had more cough and chest pain [place] - [facility] 07/22/2024 14:54:05 07/23/2024 text/html 07/23/24CC : Cardiac follow Onur BANEGAS is a 69 years-old Female with h/o Coronary arteriosclerosis , GABG 2022, TIM on CPAP, and Hyperlipidemia is here for 3 month follow up. She was last seen in the clinic on 04/30/24, since then she has some coughShe denies ER visits and hospitalizations since she was last seen. Today reports:pt was having some pain under left breastDenies chest pain.Denies shortness of breath at rest. Has mild dyspnea on exertion.No orthopnea. No PNDs.Denies heart palpitations.Denies dizziness. Denies syncope or near syncope.No ankle or leg edema.No major bleeding events.No reported side effects from medications. Taking medications as prescribed with no missed doses.Denies snoring, daytime somnolence and AM headache.*Last LDL was 56 done on 04/28/24.Pt takes atorvastatin 80 mg. *Had Us, Doppler, Arterial on 06/12/24 showed Normal ankle-brachial index. Previously:She was in the hospital with UTI, had chest pain *Had ECHO on 01/03/24 showed LV chamber size is normal, LVEF 55-60%, LV wall thickness is mildly increased,LV relaxation is impaired, there is trace aortic regurgitation, there is trace tricuspid regurgitation, estimated RVSP systolic pressure is 42 mmHg. 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 She has more fatigue, and dyspnea on exertion She was in the [facility] on 11/28 for CABG x 2. She had occasional chest pain and indigestion that last for few minutes.She is also having occasional dyspnea on exertion. *She had a positive stress test a the inferior lead that is medium in size. Had coronary atherosclerosis due to calcified coronary lesion, had COVID in Nov, since then had more cough and chest pain Fidencio Dickerson MD [address] [place], [address], [facility] - [facility] 07/23/2024 15:41:37 01/28/2025 text/html 01/28/25CC : Cardiac follow Onur BANEGAS is a 69 years-old Female with h/o Coronary arteriosclerosis , GABG 2022, TIM on CPAP, and Hyperlipidemia is here for 6 month follow up. She was last seen in the clinic on 07/23/24, since then she is doing well, has coughShe denies ER visits and hospitalizations since she was last seen. Today reports:Denies chest pain.Denies shortness of breath at rest. Has mild dyspnea on exertion.No orthopnea. No PNDs.Denies heart palpitations.Denies dizziness. Denies syncope or near syncope.No ankle or leg edema.No major bleeding events.No reported side effects from medications. Taking medications as prescribed with no missed doses.Denies snoring, daytime somnolence and AM headache.*Last LDL was 56 done on 04/28/24.Pt takes atorvastatin 80 mg. Previously:*EKG 07/23/24: Sinus rhythm , first degree AV block (limited), P; normal, QRS; RSR in V2, low voltage in precordial leads, ST-T; slight high-lateral ST-T changes, consider ischemia , LV overload or aspecific change, small negative T in l aVL, additional remarks: long QT interval, conclusion: possibly abnormal ECG. *Had Us, Doppler, Arterial on 06/12/24 showed Normal ankle-brachial index. She was in the hospital with UTI, had chest pain *Had ECHO on 01/03/24 showed LV chamber size is normal, LVEF 55-60%, LV wall thickness is mildly increased,LV relaxation is impaired, there is trace aortic regurgitation, there is trace tricuspid regurgitation, estimated RVSP systolic pressure is 42 mmHg. 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 She has more fatigue, and dyspnea on exertion She was in the [facility] on 11/28 for CABG x 2. She had occasional chest pain and indigestion that last for few minutes.She is also having occasional dyspnea on exertion. *She had a positive stress test a the inferior lead that is medium in size. Had coronary atherosclerosis due to calcified coronary lesion, had COVID in Nov, since then had more cough and chest pain Fidencio Dickerson MD [address] [facility], [place], [address], [place] - [facility] 01/28/2025 17:01:52 OBGyn Episode No OBEpisode recorded.
--- OUTSIDE RECORDS SUMMARY | 2025-02-12 00:31 | XMS_ITS | Data Portability ---
Author Organization [place] [facility], Main Office Address [address] [place] [address] Assessment Encounter Date Assessment Date Assessment LastModified by Organization Details LastModified Time 10/17/2024 10/17/2024 45 minutes spent [facility] visit [facility] Not available 10/17/2024 16:28:25 Plan of Treatment Reminders Order Date Submit Date Provider Last Modified By Organization Details Last Modified Time Details Appointments Follow Up 15 2024 02:00P MARIEL Johnson Not available Not available Not available Lab glycohemo globin, total, blood 2024 025 [facility] (Lab), [address] [place], [address], 02/07/2025 15:46:10 TSH, serum or plasma 2024 025 [facility] (Lab), [address] [place], [address], 02/08/2025 15:03:21 H. pylori, fingersti ck [address] (Lab), [address] [place], [address], 12/04/2024 08:03:29 lipid panel, serum [address] (Lab), [address] [place], [address], 10/24/2024 08:23:39 CMP, serum or plasma [address] (Lab), [address] [place], [address], 10/24/2024 08:23:39 urinalysi s, dipstick 2023 024 [facility], [address] [facility], [place], [address], 10/17/2024 16:07:04 CBC w/ auto diff [address] (Lab), [address] [place], [address], 10/24/2024 08:23:38 vitamin D, 25-hydrox y, total, serum [address] (Lab), [address] [place], [address], 10/24/2024 08:23:38 TSH, serum or plasma [address] (Lab), [address] [place], [address], 10/24/2024 08:23:39 glycohemo globin, total, blood [address] (Lab), [address] [place], [address], 10/24/2024 08:23:39 Referral orthopedi c surgeon referral 2024 025 [email or web address] Not available 02/07/2025 16:34:55 Procedures upper endoscopy procedure (EGD) (PROC) - Has colonosco py scheduled for 02/12/25, would like to do together. Family hx of esophagea l cancer 2024 025 [facility], [place], [facility] by [facility], [address], [id number], [place], [address], 02/07/2025 16:38:35 Surgeries None recorded. Imaging US, thyroid - Please call patient to schedule. 2024 025 [facility] ([facility]), [address], [place], [address], 02/10/2025 09:00:48 CT, abdomen + pelvis, w/ contrast - CIRO Please call pt to schedule 2024 025 [facility], [address], [place], [address], 11/29/2024 06:35:03 XR, chest, 2 view 2023 024 [facility], [address], [place], [address], 10/18/2024 09:43:55 XR, hip + pelvis, bilateral - Please contact pt to schedule 2023 024 [facility], [address], [place], [address], 06/25/2024 13:37:01 CT, spine, w/o contrast - *Please call pt to schedule* 2023 024 [email or web address] [facility], [address], [place], [address], 06/28/2024 10:28:56 XR, thoracic spine, 2 view 2023 024 [facility], [address], [place], [address], 06/25/2024 13:33:29 XR, lumbosacr al spine - 4 xrays total 2023 024 [facility] , [address] [facility], [place], [address], 06/25/2024 15:46:43 Medication Orders Zepbound 2.5 mg/0.5 mL subcutane ous pen injector 2024 025 [id number], [address], [place], [place], [id number], 02/07/2025 15:46:11 zolpidem 5 mg tablet 2024 025 [facility][id number], [address] , [place], [place], [id number], 02/07/2025 15:41:33 Breztri Aerospher e 160 mcg-9mcg- 4.8mcg/ac tuation HFA aerosol inhaler 2024 [facility] #[id number], [address] , [place], [place], [id number], 02/07/2025 15:41:34 fluconazo le 150 mg tablet 2023 024 [facility] #[id number], [address], [place], [place], [id number], 10/17/2024 16:25:34 Vraylar 1.5 mg capsule 2023 024 [facility] #[id number], [address], [place], [place], [id number], 08/01/2024 15:43:09 zolpidem 5 mg tablet 2023 024 [facility] #[id number], [address], [place], [place], [id number], 08/01/2024 15:43:14 fluconazo le 150 mg tablet 2023 024 [facility][id number], [address], [place], [place], [phone], 08/01/2024 15:43:10 triamcino lone acetonide 40 mg/mL suspensio n for injection 2023 024 Not available 10/17/2024 15:15:20 Ozempic 1 mg/dose (4 mg/3 mL) subcutane ous pen injector 2023 024 [facility][id number], [address], [place], [place], [id number], 08/01/2024 15:00:11 Patient TargetsNo targets recorded. Patient InstructionsNo instructions recorded. Reason for Referral Orthopedic Surgeon Referral for Pain of left knee joint Referring Physician: Betty Salas, Family Medicine, Encounter Date: 02/07/2025 Results Created Date Observation Date Name Description Value Unit Range Abnormal Flag Note LastModifiedBy Organization Detail LastModifiedTime 10/17/20 24 10/17/2024 urina lysis , dipst ick Leukocytes (reference range: negative david/ l) Negati ve Not Available [address], [address], 10/17/2024 15:52:09 10/17/20 24 10/17/2024 urina lysis , dipst ick Nitrite (reference rage: negative mg/dl) negati ve Not Available [address], [address], 10/17/2024 15:52:09 10/17/20 24 10/17/2024 urina lysis , dipst ick Urobilinogen (reference range: 0.2-1 mg/dl) 0.2 Not Available [address], [address], 10/17/2024 15:52:09 10/17/20 24 10/17/2024 urina lysis , dipst ick Protein (reference range: negative mg/dl) Negati ve Not Available [address], [address], 10/17/2024 15:52:10/17/20 24 10/17/2024 urina lysis , dipst ick pH (reference range: 5-7) 7.0 Not Available [address], [address], 10/17/2024 15:52:10/17/20 24 10/17/2024 urina lysis , dipst ick Blood (reference range: negative Tre/ l) Negati ve Not Available [address], [address], 10/17/2024 15:52:09 10/17/20 24 10/17/2024 urina lysis , dipst ick Specific [place] (reference range: 1.005-1.030) 1.030 Not Available [address], [address], 10/17/2024 15:52:10/17/20 24 10/17/2024 urina lysis , dipst ick Ketone (reference range: negative mg/dl) Negati ve Not Available [address], [address], 10/17/2024 15:52:10/17/20 24 10/17/2024 urina lysis , dipst ick Bilirubin (reference range: negative mg/dl) Negati ve Not Available [address], [address], 10/17/2024 15:52:09 10/17/20 24 10/17/2024 urina lysis , dipst ick Glucose (reference range: negative mg/dl) 500 Not Available [facility] [address] [place] [address], [address], 10/17/2024 15:52:09 10/17/20 24 10/17/2024 urina lysis , dipst ick Appearance Clear Not Available [facility] [address] [place] [address], [address], 10/17/2024 15:52:09 10/17/20 24 10/17/2024 urina lysis , dipst ick Color Yellow Not Available [address], [place], [address], 10/17/2024 15:52:09 06/25/20 24 06/25/2024 XR, thora cic spine , 2 view No observ ation record ed. [address], [place], [address], 06/25/2024 14:19:09 06/25/20 24 06/25/2024 XR, hip + pelvi s, bilat eral No observ ation record ed. [address], [place], [address], 06/25/2024 14:19:10 06/25/20 24 06/25/2024 XR, lumbo sacra l spine No observ ation record ed. [address], [place], [address], 06/25/2024 16:58:14 07/06/20 24 07/05/2024 CT, thora cic spine , w/o contr ast No observ ation record ed. [address], [place], [address], 07/09/2024 09:06:46 10/18/20 24 10/17/2024 XR, chest , 2 view No observ ation record ed. [place] [address], [place], [address], 10/18/2024 16:40:54 11/26/19 25 11/26/2024 MAMMO , scree dee, bilat eral No observ ation record ed. [address] [facility] [address], [place], [address], 11/27/2024 12:34:14 11/28/19 25 11/28/2024 CT, abdom en + pelvi s, w/ contr ast No observ ation record ed. [address], [place], [address], 11/29/2024 14:44:18 Result Notes None recorded. Problems Name Problem SNOMED Code Status Onset Date Resolution Date Notes Provider Name and Address Organization Details Recorded Time Pain of right shoulder joint 0583439900909 9100 Active 2021 Not Available [facility] 3 00:27:15 Partial thickness rotator cuff tear 331935336 Active 2021 Not Available [facility] 3 00:27:15 Gastroesop hageal reflux disease 263240918 Active 2021 Not Available [facility] 3 00:27:15 Pain in right hip joint 8489665360054 02 Active 2021 Not Available [facility] 3 00:27:15 Hypothyroi dism 34322637 Active 2021 Not Available [facility] 3 00:27:15 Essential hypertensi on 23212680 Active 2021 Not Available [facility] 3 00:27:15 Chronic cough 19374913 Active 2021 post covid Not Available [facility] 3 00:27:16 Degenerati on of interverte bral disc 28485058 Active 2021 cervic al/lum bar spine Not Available [facility] 3 00:27:16 Uterine leiomyoma 90686700 Active 2022 FARHAD Florez [address], [place], [address] , [place] [facility] 3 15:11:58 Low back pain 034785149 Active 2022 FARHAD Florez [address], [place], [address] , [place] [facility] 3 15:22:29 Cough 72868079 Active 2022 Virginie Cifuentes MD [address], [place], [address] , [place] [facility] 3 07:48:12 Acute situationa l disturbanc e 144199465 Active 2022 Virginie Cifuentes MD [address], [place], [address] , [facility] 3 13:06:45 Fatigue 43528868 Active 2022 Virginie Cifuentes MD [address], [place], [address] , [place] [facility] 3 13:07:57 Hyperlipid emia 88367241 Active 2022 Virginie Cifuentes MD [address], [place], [address] , [facility] 3 13:09:12 Vitamin D deficiency 98492090 Active 2022 Virginie Cifuentes MD [address], [place], [address] , [facility] 3 13:09:28 Prediabete s 853138358 Active 2022 Virginie Cifuentes MD [address], [place], [address] , [place] [facility] 3 11:10:58 Neuropathy 628906833 Active 2022 Virginie Cifuentes MD [address], [address], [place], [address] , [facility] 3 19:01:12 Restless legs 55233087 Active 2022 Virginie Cifuentes MD [address], [address], [place], [address] , [place] [facility] 3 10:32:15 Mixed anxiety and depressive disorder 205228276 Active 2022 Virginie Cifuentes MD [address], [address], [place], [address] , [facility] 3 10:34:41 Degenerati on of lumbar interverte bral disc 30138982 Active 2022 Virginie Cifuentes MD [address], [address], [place], [address] , [facility] 3 10:36:02 Thoracic back pain 963210239 Active 2023 MARIEL Oneil [address], [address], [place], [address] , [facility] 4 15:14:35 Diarrhea 33066894 Active 2023 MARIEL Oneil [address], [address], [place], [address] , [facility] 4 15:26:24 Nausea and vomiting 09156270 Active 2023 MARIEL Oneil [address], [address], [place], [address] , [facility] 4 15:27:27 Headache 02225185 Active 2023 MARIEL Oneil [address], [address], [place], [address] , [facility] 4 15:29:00 Migraine 12468280 Active 2023 MARIEL Oneil [address], [address], [place], [address] , [facility] 4 15:30:17 Anxiety 32793481 Active 2023 MARIEL Oneil [address], [place], [address] , [facility] 4 15:31:58 COVID-19 837249645 Active 2023 MARIEL Oneil [address], [place], [address] , [facility] 4 12:14:12 Injury of back of trunk 1668918911 Active 2023 MARIEL Oneil [address], [place], [address] , [facility] 4 12:15:14 Inflammati on of pubic symphysis 843180583 Active 2023 MARIEL Oneil [address], [place], [address] , [facility] [employer] [facility] 4 08:41:18 Primary insomnia 6663398 Active 2023 MARIEL Oneil [address], [address], [place], [address] , [facility] 4 15:14:16 Major depressive disorder 348389445 Active 2023 MARIEL Oneil [address], [place], [address] , [facility] 4 15:17:46 Bacterial vaginosis 780279089 Active 2023 MARIEL Oneil [address], [place], [address] , [facility] [employer] [facility] 4 15:33:48 Night sweats 98783737 Active 2023 MARIEL Oneil [address], [place], [address] , [place] [facility] 4 15:28:09 Obesity 418168725 Active 2023 MARIEL Oneil [address], [address], [place], [address] , [place] [facility] 4 15:47:30 Abnormal vaginal odor 95691447 Active 2023 MARIEL Oneil [address], [place], [address] , [place] [facility] 4 15:52:04 Acute bacterial sinusitis 95090659 Active 2023 MARIEL Oneil [address], [place], [address] , [place] [facility] 4 09:53:47 Hiatal hernia 67869799 Active 2023 MARIEL Oneil [address], [place], [address] , [place] [facility] 4 09:54:46 Left lower quadrant pain 286898676 Active 2024 MARIEL Oneil [address], [place], [address] , [place] [facility] 5 16:39:10 Abdominal bloating 730910636 Active 2024 MARIEL Oneil [address], [place], [address] , [place] [facility] 5 16:41:21 Diverticul osis of colon 990593041 Active 2024 MARIEL Oneil [address], [place], [address] , [place] [facility] 5 12:47:33 Chronic obstructiv e pulmonary disease 38451783 Active 2024 MARIEL Oneil [address], [place], [address] , [facility] [employer] [facility] 5 15:36:02 Pain of left knee joint 5468249247731 07 Active 2024 MARIEL Oneil [address], [place], [address] , [facility] [employer] [facility] [employer] [facility] 15:39:49 Obstructiv e sleep apnea syndrome 87335446 Active 2024 MARIEL Oneil [address], [place], [address] , [facility] [employer] [facility] 15:45:09 Problem Notes None recorded. Procedures Surgical History Date Name Laterality Status Provider Name and Address Organization Details Recorded Time Back Surgery completed Not Available [facility] 01/05/2023 00:26:05 Imaging Results Imaging Date Name Status LastModified by Organiz ation Details LastModified Time 06/25/2024 XR, thoracic spine, 2 view completed [address] [place] [address], [address], 06/25/2024 14:19:09 06/25/2024 XR, hip + pelvis, bilateral completed [address] [place] [address], [address], 06/25/2024 14:19:10 06/25/2024 XR, lumbosacral spine completed [address] [place] [address], [address], 06/25/2024 16:58:14 07/05/2024 CT, thoracic spine, w/o contrast completed [address] [facility] [address], [place], [address], 07/09/2024 09:06:46 10/17/2024 XR, chest, 2 view completed [place] [address] [facility] [address], [place], [address], 10/18/2024 16:40:54 11/26/2024 MAMMO, screening, bilateral completed [address] [facility] [address], [place], [address], 11/27/2024 12:34:14 11/28/2024 CT, abdomen + pelvis, w/ contrast completed [address] [facility] [address], [place], [address], 11/29/2024 14:44:18 Procedure Notes None recorded. Medical Equipment None Reported. Allergies No known drug allergies Medications Name Sig Start Date Stop Date Status Note LastModified by Organization Details LastModified Time losartan 50 mg tablet TAKE 1 TABLET BY MOUTH EVERY DAY 02/25 completed Not Available Not Available Not Available furosemide 40 mg tablet TAKE 1 TABLET BY MOUTH EVERY DAY active Not Available Not Available No t Available atorvastati n 80 mg tablet TAKE 1 TABLET BY MOUTH EVERY DAY active Not Available Not Available No t Available gabapentin 600 mg tablet TAKE 1 TABLET BY MOUTH FOUR TIMES DAILY 10/10 completed Not Available Not Available Not Available ropinirole 1 mg tablet TAKE 1 TABLET BY MOUTH TWICE DAILY active Not Available Not Available No t Available citalopram 40 mg tablet TAKE 1 TABLET BY MOUTH EVERY DAY active Not Available Not Available No t Available azithromyci n 250 mg tablet TAKE 2 TABLETS (500 MG) BY ORAL ROUTE ONCE DAILY FOR 1 DAY THEN 1 TABLET (250 MG) BY ORAL ROUTE ONCE DAILY FOR 4 DAYS 11/26 completed Not Available Not Available Not Available tizanidine 4 mg tablet TAKE 1 TABLET BY MOUTH EVERY 6 HOURS NEEDED active Not Available Not Available No t Available fluconazole 150 mg tablet Take 1 tablet every 72 hours by oral route as directed for 9 days. active Not Available Not Available No t Available benzonatate 200 mg capsule Take 1 capsule 3 times a day by oral route as needed for 15 days. 06/25 completed Not Available Not Available Not Available sumatriptan 100 mg tablet TAKE 1 TABLET BY MOUTH TWICE DAILY NEEDED active Not Available Not Available No t Available hydrocodone 5 mg-acetamin ophen 325 mg tablet TAKE 1 TABLET BY MOUTH EVERY 8 HOURS NEEDED. active Not Available Not Available No t Available meloxicam 15 mg tablet TAKE 1 TABLET BY MOUTH EVERY DAY 10/21 completed Not Available Not Available Not Available spironolact one 25 mg-hydrochl orothiazide 25 mg tablet TAKE 1 TABLET BY MOUTH EVERY DAY 12/28 completed Not Available Not Available Not Available metronidazo le 0.75 % (37.5 mg/5 gram) vaginal gel INSERT ONE APPLICATO RFUL VAGINALLY AT BEDTIME FOR 5 NIGHTS active Not Available Not Available No t Available prednisone 20 mg tablet 3 po qday x 3 days then 2 po qday x 3 days then 1 po qday x 3 days then 1/2 tab po qday x 3 days then stop 03/24 completed Not Available Not Available Not Available potassium chloride ER 10 mEq tablet,exte nded release TAKE 2 TABLETS BY MOUTH EVERY DAY active Not Available Not Available No t Available hydroxyzine HCl 50 mg tablet Take by oral route for 30 days. 06/25 completed Not Available Not Available Not Available Klor-Con 20 mEq oral packet 03/10 completed Not Available Not Available Not Available phentermine 37.5 mg tablet TAKE 1 TABLET BY MOUTH EVERY DAY 03/24 completed Not Available Not Available Not Available clopidogrel 75 mg tablet 06/25 completed Not Available Not Available Not Available levofloxaci n 250 mg tablet TAKE 1 TABLET BY MOUTH TWICE DAILY FOR 10 DAYS 03/14 completed Not Available Not Available Not Available ciprofloxac in 500 mg tablet 05/02 completed Not Available Not Available Not Available hydrocodone 10 mg-acetamin ophen 325 mg tablet TAKE 1 TABLET BY MOUTH FOUR TIMES DAILY NEEDED 05/02 completed Not Available Not Available Not Available aspirin 81 mg tablet,cecil yed release TAKE 1 TABLET BY MOUTH EVERY DAY active Not Available Not Available No t Available tramadol 50 mg tablet TAKE 1 TABLET BY MOUTH THREE TIMES DAILY NEEDED FOR PAIN 12/28 completed Not Available Not Available Not Available triamcinolo ne acetonide 0.1 % topical cream APPLY TO THE AFFECTED AREA TWICE DAILY FOR 90 DAYS active Not Available Not Available No t Available levothyroxi ne 75 mcg tablet TAKE 1 TABLET BY MOUTH EVERY DAY 02/25 completed Not Available Not Available Not Available meloxicam 7.5 mg tablet TAKE 1 TABLET BY MOUTH TWICE DAILY NEEDED FOR 90 DAYS 12/28 completed Not Available Not Available Not Available levothyroxi ne 88 mcg tablet TAKE 1 TABLET BY MOUTH DAILY 06/29 completed Not Available Not Available Not Available citalopram 20 mg tablet TAKE 1 TABLET BY MOUTH IN THE MORNING 02/07 completed Not Available Not Available Not Available potassium chloride ER 20 mEq tablet,exte nded release(par t/cryst) TAKE 1 TABLET BY MOUTH TWICE DAILY 02/07 completed Not Available Not Available Not Available amiodarone 400 mg tablet TAKE 1 TABLET BY MOUTH EVERY DAY 03/24 completed Not Available Not Available Not Available Kenalog 10 mg/mL suspension for injection in office 05/02 completed [facility] [place]NOTE 2]: [id number] Not Available Not Available Not Available benzonatate 100 mg capsule Take 1 capsule 3 times a day by oral route as needed for 14 days. 2024 active Not Available Not Available Not Avai lable triamcinolo ne acetonide 40 mg/mL suspension for injection Take 40 mg every day by injection route as directed for 1 day. 10/17 completed Not Available Not Available Not Available pantoprazol e 40 mg tablet,cecil yed release TAKE 1 TABLET BY MOUTH EVERY DAY active Not Available Not Available No t Available levothyroxi ne 125 mcg tablet TAKE 1 TABLET BY MOUTH EVERY DAY BEFORE A MEAL FOR 90 DAYS 2024 active Not Available Not Available Not Avai lable ropinirole 0.5 mg tablet TAKE 1 TABLET BY MOUTH TWICE DAILY active Not Available Not Available No t Available clotrimazol e-betametha sone 1 %-0.05 % topical cream APPLY TO THE AFFECTED AREA TWICE DAILY TO AFFECTED AREA UNTIL SYMPTOMS RESOLVE active Not Available Not Available No t Available hyoscyamine 0.[address] 1 tablet twice a day by sublingua l route as needed for 20 days, for diarrhea. 06/25 completed Not Available Not Available Not Available nitroglycer in 0.[address] 1 TABLET UNDER THE TONGUE NEEDED FOR CHEST PAIN. MAY REPEAT EVERY 5 MINUTES UP TO A TOTAL OF 3 DOSES. IF NO RELIEF SEEK MEDICAL ATTENTION . active Not Available Not Available No t Available gabapentin 300 mg capsule TAKE 1 CAPSULE BY MOUTH FOUR TIMES DAILY 07/05 completed Not Available Not Available Not Available hydrochloro thiazide 25 mg tablet TAKE 1 TABLET BY MOUTH EVERY DAY 02/25 completed Not Available Not Available Not Available zolpidem 5 mg tablet Take 1 tablet every day by oral route as needed for 30 days. 2024 active Not Available Not Available Not Avai lable metoprolol succinate ER 25 mg tablet,exte nded release 24 hr TAKE 1 TABLET BY MOUTH EVERY DAY active Not Available Not Available No t Available levofloxaci n 750 mg tablet TAKE 1 TABLET BY MOUTH DAILY 12/28 completed Not Available Not Available Not Available methylpredn isolone 4 mg tablets in a dose pack FOLLOW PACKAGE DIRECTION S 06/25 completed Not Available Not Available Not Available albuterol sulfate HFA 90 mcg/actuati on aerosol inhaler INHALE 1 PUFF BY MOUTH EVERY 4 HOURS NEEDED FOR SHORTNESS OF BREATH OR WHEEZING 05/02 completed Not Available Not Available Not Available ondansetron 4 mg disintegrat ing tablet DISSOLVE 2 TABLETS ON THE TONGUE TWICE DAILY FOR 15 DAYS NEEDED FOR NAUSEA active Not Available Not Available No t Available doxycycline hyclate 100 mg tablet TAKE 1 TABLET BY MOUTH TWICE DAILY FOR 7 DAYS 03/24 completed Not Available Not Available Not Available loratadine 10 mg tablet TAKE 1 TABLET BY MOUTH EVERY DAY FOR 90 DAYS 02/07 completed Not Available Not Available Not Available naproxen 500 mg tablet TAKE 1 TABLET BY MOUTH TWICE DAILY 03/14 completed Not Available Not Available Not Available levothyroxi ne 112 mcg tablet TAKE 1 TABLET BY MOUTH DAILY 11/26 completed Not Available Not Available Not Available amoxicillin 875 mg-potassiu m clavulanate 125 mg tablet Take 1 tablet every 12 hours by oral route as directed for 7 days. 11/26 completed Not Available Not Available Not Available amoxicillin 500 mg-potassiu m clavulanate 125 mg tablet TAKE 1 TABLET BY MOUTH TWICE DAILY FOR 7 DAYS 01/13 completed Not Available Not Available Not Available oxycodone 5 mg tablet TAKE 1 TABLET BY MOUTH EVERY 4 HOURS NEEDED FOR PAIN 03/03 completed Not Available Not Available Not Available ciprofloxac in 0.3 %-dexametha sone 0.1 % ear drops,suspe nsion INSTILL 1 DROP IN AFFECTED EAR(S) TWICE DAILY FOR 2 WEEKS 03/14 completed Not Available Not Available Not Available bupropion HCl XL 150 mg 24 hr tablet, extended release TAKE 1 TABLET BY MOUTH EVERY DAY 05/02 completed Not Available Not Available Not Available amiodarone 100 mg tablet TAKE 1 TABLET BY MOUTH EVERY DAY 05/02 completed Not Available Not Available Not Available metoprolol tartrate 25 mg tablet Take half tablet twice daily 05/02 completed Not Available Not Available Not Available pregabalin 150 mg capsule Take 1 capsule twice a day by oral route. active Not Available Not Available No t Available pregabalin 200 mg capsule TAKE 1 CAPSULE BY MOUTH TWICE DAILY. 02/07 completed Not Available Not Available Not Available pregabalin 225 mg capsule TAKE 1 CAPSULE BY MOUTH TWICE DAILY active Not Available Not Available No t Available Symbicort 160 mcg-4.5 mcg/actuati on HFA aerosol inhaler INHALE 2 PUFFS BY MOUTH EVERY 12 HOURS 05/02 completed Not Available Not Available Not Available FeroSul 325 mg (65 mg iron) tablet TAKE 1 TABLET BY MOUTH DAILY WITH BREAKFAST active Not Available Not Available No t Available ropivacaine (PF) 5 mg/mL (0.5 %) injection solution in office 05/02 completed Not Available Not Available Not Available Stimulant Laxative Plus 8.6 mg-50 mg tablet TAKE 1 TABLET BY MOUTH DAILY NEEDED FOR CONSTIPAT ION 03/10 completed Not Available Not Available Not Available potassium chloride ER 20 mEq tablet,exte nded release Take 2 tablets twice a day by oral route for 7 days. 06/25 completed Not Available Not Available Not Available Jardiance 10 mg tablet TAKE 1 TABLET BY MOUTH EVERY DAY active Not Available Not Available No t Available Vraylar 1.5 mg capsule TAKE 1 CAPSULE BY MOUTH EVERY DAY DIRECTED active Not Available Not Available No t Available Ubrelvy 50 mg tablet Take by oral route for 30 days. active Not Available Not Available No t Available tramadol 100 mg tablet TAKE 1 TABLET THREE TIMES DAILY 02/25 completed Not Available Not Available Not Available Breztri Aerosphere 160 mcg-9mcg-4. 8mcg/actuat ion HFA aerosol inhaler Inhale 2 puffs twice a day by inhalatio n route as directed for 30 days. 2024 active Not Available Not Available Not Blaine Gauthier Ellipta 200 mcg-62.5 mcg-25 mcg powder for inhalation INHALE 1 PUFF BY MOUTH DAILY 02/07 completed Not Available Not Available Not Available Ozempic 1 mg/dose (4 mg/3 mL) subcutaneou s pen injector Inject 1.5 mg every week by subcutane ous route as directed for 28 days. 08/01 completed Not Available Not Available Not Available Wegovy 0.25 mg/0.5 mL subcutaneou s pen injector 06/25 completed Not Available Not Available Not Available Ozempic 2 mg/dose (8 mg/3 mL) subcutaneou s pen injector INJECT 2 MG UNDER THE SKIN EVERY WEEK 11/26 completed Not Available Not Available Not Available Ozempic 0.25 mg or 0.5 mg (2 mg/3 mL) subcutaneou s pen injector INJECT 0.5 MG UNDER THE SKIN ONCE A WEEK 10/09 completed Not Available Not Available Not Available Zepbound 2.5 mg/0.5 mL subcutaneou s pen injector ADMINISTE R 2.5 MG UNDER THE SKIN EVERY WEEK DIRECTED active Not Available Not Available No t Available Vitals Date Recorded Body height Body mass index (BMI) Body weight Body temperature Heart rate Respiratory rate Oxygen saturation Oxygen saturation in Arterial blood by Pulse oximetry Pain severity - 0-10 verbal numeric rating [Score] - Reported Systolic blood pressure Diastolic blood pressure Provider Name and Address Organization Details Last Updated DateTime 4 154.94 cm 49 kg/m2 839672. 17 g 97.6 [degF] 65 /min 24 /min 97 % 97 % 9 142 mm[Hg] 96 mm[Hg] Jana Brown RN [place] [employer] 4 10:15:47 Date Recorded Body height Body mass index (BMI) Body weight Body temperature Heart rate Respiratory rate Oxygen saturation Oxygen saturation in Arterial blood by Pulse oximetry Pain severity - 0-10 verbal numeric rating [Score] - Reported Provider Name and Address Organization Details Last Updated DateTime 4 154.94 cm 44 kg/m2 891881. 72 g 97 [degF] 74 /min 20 /min 97 % 97 % 8 Jana Brown RN [facility] [employer] [facility] 4 15:02:01 Date Recorded Systolic blood pressure Diastolic blood pressure Provider Name and Address Organization Details Last Updated DateTime 08/01/2024 136 mm[Hg] 78 mm[Hg] Betty Salas, HOSPICE OFFICE COORDINATOR [address] [facility] [address], [place], [address], [facility] [employer] [employer] [facility] [facility] 08/01/2024 15:37:42 Date Recorded Body height Body mass index (BMI) Body weight Body temperature Heart rate Respiratory rate Pain severity - 0-10 verbal numeric rating [Score] - Reported Oxygen saturation Oxygen saturation in Arterial blood by Pulse oximetry Systolic blood pressure Diastolic blood pressure Provider Name and Address Organization Details Last Updated DateTime 4 154.94 cm 43.2 kg/m2 364295. 51 g 97 [degF] 97 /min 24 /min 6 96 % 96 % 130 mm[Hg] 70 mm[Hg] Jana Brown RN [facility] [employer] [facility] 4 15:20:24 Date Recorded Body height Body mass index (BMI) Body weight Body temperature Heart rate Respiratory rate Oxygen saturation Oxygen saturation in Arterial blood by Pulse oximetry Pain severity - 0-10 verbal numeric rating [Score] - Reported Systolic blood pressure Diastolic blood pressure Provider Name and Address Organization Details Last Updated DateTime 5 154.94 cm 42.9 kg/m2 871746. 87 g 97.2 [degF] 68 /min 24 /min 97 % 97 % 6 150 mm[Hg] 88 mm[Hg] Jana Brown RN [facility] [employer] [facility] 5 16:29:09 Date Recorded Body weight Body mass index (BMI) Body height Body temperature Heart rate Respiratory rate Oxygen saturation Oxygen saturation in Arterial blood by Pulse oximetry Pain severity - 0-10 verbal numeric rating [Score] - Reported Systolic blood pressure Diastolic blood pressure Provider Name and Address Organization Details Last Updated DateTime 5 502921. 31 g 44.2 kg/m2 154.94 cm 97.2 [degF] 56 /min 20 /min 97 % 97 % 8 132 mm[Hg] 70 mm[Hg] Jana Brown RN [facility] [employer] [facility] 15:15:51 Social History Question Answer Notes LastModified by Organization Details LastModified Time Tobacco Smoking Status Never Smoker Aleyda cortes, [facility] [employer] [employer] [facility] 10/09/2023 10:19:25 Do You Have An Advance Directive? No Information not available 06/25/2024 What Is Your Level Of Alcohol Consumption? None [id number] Information not available 01/05/2023 Is Blood Transfusion Acceptable In An Emergency? Yes Information not available 06/25/2024 What Is Your Level Of Caffeine Consumption? Heavy [id number] Information not available 01/05/2023 What Is Your Code Status? Full Code Information not available 06/25/2024 In The 14 Days Before Symptom Onset, Have You Had Close Contact With A Laboratory-confi rmed COVID-19 While That Case Was Ill? No [email or web address] Information not available 10/09/2023 In The 14 Days Before Symptom Onset, Have You Had Close Contact With A Person Who Is Under Investigation For COVID-19 While That Person Was Ill? No Information not available 10/09/2023 Are You Currently Employed? No Retired Information not available 06/25/2024 Are You Deaf Or Do You Have Serious Difficulty Hearing? No Information not available 05/02/2024 What Type Of Diet Are You Following? REGULAR [id number] Information not available 01/05/2023 Have There Been Any Changes To Your Family Or Social Situation? No Information not available 08/01/2024 Do You Use Insect Repellent Routinely? No Information not available 06/25/2024 Where Do You Live? [facility] Information not available 05/02/2024 Advance Directive- Providers Has Reviewed Directive And Consents To Follow Them (insert Provider Name With Any Objectives In Notes Field) No Information not available 11/26/2024 Presence Of Domestic Violence No Information not available 11/26/2024 Guns Present In The Home? Yes Information not available 11/26/2024 Are You Able To Care For Yourself? Yes Information not available 11/26/2024 Are You Blind Or Do Yo Have Difficulty Seeing? Yes Wears Glasses Information not available 11/26/2024 Are You Deaf Or Do You Have Serious Difficulty Hearing? Yes Sometimes Information not available 11/26/2024 General Stress Level? High Information not available 11/26/2024 Live Alone Of With Others? With Others Information not available 11/26/2024 Do You Have A Medical Power Of Life Skills Consultant? No Information not available 06/25/2024 What Was The Date Of Your Most Recent Tobacco Screening? 07/05/2022 [email or web address] Information not available 10/09/2023 Do You Have Any Pets? Yes Information not available 05/02/2024 What Is Your Relationship Status? Single [id number] Information not available 01/05/2023 Do You Use Your Seat Belt Or Car Seat Routinely? Yes Information not available 05/02/2024 Do You Have Smoke And Carbon Monoxide Detectors In Your Home? Yes Information not available 05/02/2024 Are You Passively Exposed To Smoke? Yes Information not available 05/02/2024 Do You Participate In Social Media? Yes Information not available 05/02/2024 Do You Feel Stressed (tense, Restless, Nervous, Or Anxious, Or Unable To Sleep At Night)? [id number] Information not available 05/02/2024 Do You Use Any Illicit Or Recreational Drugs? No Information not available 10/09/2023 Do You Use Sunscreen Routinely? No Information not available 06/25/2024 Has Tobacco Cessation Counseling Been Provided? No [email or web address] Information not available 10/09/2023 Have You Recently Traveled Abroad? No [email or web address] Information not available 10/09/2023 Are You Currently In School? No [email or web address] Information not available 10/09/2023 Do You Have Any Dietary Restrictions? No [email or web address] Information not available 10/09/2023 Do You Or Have You Ever Used Any Other Forms Of Tobacco Or Nicotine? No [email or web address] Information not available 10/09/2023 Sex: Female Functional Status Question Answer Note LastModified by Organizat ion Details LastModified Time Do you have difficulty walking or climbing stairs? Yes Information not available 06/25/2024 Do you have transportation difficulties? No Information not available 05/02/2024 Are you able to walk? YESWOREST wobbles when she walks Information not available 11/26/2024 Do you have difficulty doing errands alone? No Information not available 05/02/2024 Are you able to care for yourself? Yes Information n ot available 05/02/2024 Do you have difficulty dressing or bathing? No Information not available 05/02/2024 What is your exercise level? Occasional [id number] Information not available 01/05/2023 Mental Status Question Answer Note LastModified by Organization D etails LastModified Time Do you have difficulty concentrating, remembering or making decisions? Yes Information no t available 05/02/2024 Family History Relationship Description Onset Age of this Age Resolved Age Notes LastModified by Organization Details LastModified Time Father Heart disease [id number] Not available 01/05/2023 00:26:07 Father Hypertensive disorder [id number] Not available 01/05/2023 00:26:07 Father Diabetes mellitus [id number] Not available 01/05/2023 00:26:07 Mother Malignant neoplastic disease unsure what kind [email or web address] Not available 06/25/2024 09:56:18 Medical History Condition Response BLINDNESS N KIDNEY STONES N MRSA N CARPAL TUNNEL SYNDROME N LUNG DISEASE/DISORDER N HISTORY OF DRUG ABUSE N RADIATION / CHEMOTHERAPY N COPD N SPORTS INJURY N ANKLE PAIN N BLOOD DISEASES N SCHIZOPHRENIA N SHINGLES N SHOULDER PAIN N BOWEL PROBLEMS N DEPRESSION (INCLUDING POST ) N STROKE/TIA N ULCERS N KNEE PAIN N BENIGN PROSTATIC HYPERPLASIA N OBESITY N GERD/NAUSEA N ANEURYSM N URINARY/BLADDER/KIDNEY PROBLEMS N CORONARY ARTERY DISEASE (CAD) N ADDICTION CONCERNS N USE OF BLOOD THINNERS N SKIN PROBLEMS Y EMPHYSEMA N MUSCLE,JOINT OR BONE PROBLEMS N DVT N STOMACH ULCERS N BLOOD CLOTS N USE OF NSAIDS N CONCUSSION OR SPINAL TRAUMA N NEUROPATHY N AIDS/HIV N FRACTURES N HYPERTENSION N ELBOW PAIN N TOURETTE'S N Metal allergy N ANXIETY DISORDER N BLOOD TRANSFUSION N ANEMIA/BLOOD DISORDER N BIPOLAR DISORDER N BRONCHITIS N OSTEOARTHRITIS N TUBERCULOSIS N FOOT PROBLEM N HEART VALVE DISORDERS N ALLERGIES/HAYFEVER N SOFT TISSUE INJURY N INFECTIOUS DISEASE N HEART ARRHYTHMIA N INSOMNIA N HIGH CHOLESTEROL / HYPERLIPIDEMIA N RHEUMATOID ARTHRITIS N EDEMA N CHRONIC PAIN SYNDROME N CAROTID BLOCKAGE N BACK / NECK PROBLEMS N HAVE YOU BEEN HOSPITALIZED OR SEEN IN [facility] IN THE PAST YEAR ? N BURSITIS N HERNIATED DISC N DIALYSIS N FIBROMYALGIA N OSTEOPOROSIS N ARTHRITIS Y NO SIGNIFICANT PAST MEDICAL HISTORY N PERIPHERAL NEUROPATHY N DIABETES, TYPE N HEARTBURN / REFLUX N HEPATITIS / LIVER DISEASE N GOUT N ALZHEIMER'S DISEASE N SLEEP DISORDER N HERPES N HEADACHES/MIGRAINES N SEIZURES/EPILEPSY N VASCULAR DISEASE N Blood Disorder N HIP PAIN N DIZZINESS N HEAD TRAUMA OR INJURY N HEART DISEASE/HEART PROBLEMS N MULTIPLE SCLEROSIS N CANCER: SPECIFY N CARDIAC ARRHYTHMIA N ANESTHESIA COMPLICATIONS N ATRIAL FIBRILLATION N AUTOIMMUNE DISEASE N Gynecological History Statement/Question Response Date of Last Pap Smear Date of Last Colonoscopy Most Recent Mammogram Most Recent Bone Density Obstetrics History GPAL:G 1 P 1 0 0 0 Type Value Full Term 1 Total 1 Immunizations Vaccine Type Date Status Note Provider Nam e and Address Organization Details Recorded Time Influenza, high-dose, quadrivalent, PF 08/18/2022 completed Not Available [employer] 00:28:46 Influenza, high-dose, quadrivalent, PF 08/07/2023 completed Payal Khan RN [facility], [place] - [facility] [employer] 08/07/2023 11:20:18 Past Encounters Encounter ID Performer Location Encounter Start Date Encounter Closed Date Diagnosis/Indication Diagnosis SNOMED-CT Code Diagnosis ICD10 Code Diagnosis Note [id number] [facility] [address] [place] [address] 01/13/2022 00:00:00 01/28/2022 08:31:37 [id number] [facility] [address] [facility] [address] [place] [address] 02/25/2022 00:00:00 02/25/2022 12:14:30 [id number] [facility] [address] [place] [address] 03/14/2022 00:00:00 03/14/2022 17:52:54 [id number] [facility] [address] [place] [address] 05/18/2022 00:00:00 05/18/2022 09:07:36 [id number] [facility] [place] [facility] [address] [place] [address] 07/05/2022 00:00:00 07/05/2022 22:25:58 [id number] [facility] [place] [address] [place] [address] 08/18/2022 00:00:00 08/30/2022 15:49:12 [id number] [facility] [place] [address] [place] [address] 10/10/2022 00:00:00 10/10/2022 18:14:28 [id number] [facility] [address] [facility] [address] [place] [address] 10/21/2022 00:00:00 10/21/2022 10:46:33 [id number] [facility] [place] [address] [place] [address] 11/17/2022 00:00:00 12/05/2022 13:19:23 [id number] [facility] [place] [address] [place] [address] 12/28/2022 00:00:00 12/28/2022 13:46:01 [id number] FARHAD Florez [facility] [place] [address] [place] [address] 03/03/2023 14:39:37 03/03/2023 15:57:07 Uterine leiomyoma 58049264 D25.9 Will fax US results to gynecology (Dr. Stephanie Roberts) to continue follow-up. Pt. does have pain in area, but hard to determine with her back pain/hip pain she is also experienci ng. Body mass index 40+ - severely obese 401816759 Z68.42 Has been on phentermin e in the past but did not feel she saw good results. ken is requesting wegovy. Will send script but advised patient this will most likely need PA and chance it will denied by her insurance. Encouraged healthy eating/exe rcise. Low back pain 633625908 M54.50 Will f/u with ortho next week, will hold off on imaging.Wi ll do course of prednisone . Pt. requesting pain medication , advised we can do temporary script, directed to use sparingly, supplement with otc pain relievers. Pain in ri ght hip joint 7366378601 25092 M25.551 Most likely from back or fibroid. Will address with ortho next week. [id number] FARHAD Corrales [facility] [address] [place] [address] 03/10/2023 11:25:26 03/10/2023 13:35:10 Pain in right hip joint 7046621741 28470 M25.551 [id number] FARHAD Corrales [facility] [address] [place] [address] 03/24/2023 10:55:31 03/24/2023 12:11:34 Pain in right hip joint 4467421465 06626 M25.551 [id number] Virginie Cifuentes MD [facility] [address] [facility] [facility] [address] [place] [address] 05/23/2023 12:45:48 05/23/2023 13:37:50 Low back pain 344078941 M54.50 seeing pain mgmt and getting MRIuse sparinglyP t understand s this medication has risk for abuse/depe ndence and agrees to take it only as prescribed and to guard from loss/theft Acute situ ational disturbance 395113321 F43.20 trial of bupropion xl 150 mg daily with foodReview ed potential med s/e, d/c and be seen if any si/hif/u in 4 weeks Essential hypertension 13218844 I10 Hypothyroidism 15434162 E03.9 Fatigue 55158410 R53.83 R73.9 R63.5 D50.9 Hyperlipidemia 11458676 E78.5 Vitamin D deficiency 347 88972 E55.9 [id number] Virginie Cifuentes MD [facility] Primary Care [address] [place] [address] 06/29/2023 10:49:58 06/29/2023 11:16:55 Hypothyroidism 71152498 E03.9 increase levothyrox ine 112 mcgrepeat tsh in 3 months Prediabetes 102107816 R7 3.03 trial of ozempic Low back pain 961402172 M54.50 seeing pain mgmt and getting MRIuse sparinglyP t understand s this medication has risk for abuse/depe ndence and agrees to take it only as prescribed and to guard from loss/theft update 06/29/23 got injection #1 this week, no improvemen t yet [id number] Virginie Cifuentes MD [facility] Primary Care [address] [address] 08/07/2023 10:08:48 08/07/2023 11:09:06 Administration of influenza vaccine 45259385 Z23 Hypothyroidism 07241803 E03.9 increase levothyrox ine 112 mcg at last apptrepeat tsh in 2 months Prediabetes 303947125 R7 3.03 tolerated well, but did not get the 0.5 mg script from pharmacy, has been off for several weeksozemp ic 0.25 mg sample given for 4 weeks then increased increase 0.5 mg sc qweek Low back pain 537160767 M54.50 seeing pain mgmt and getting MRIuse sparinglyP t understand s this medication has risk for abuse/depe ndence and agrees to take it only as prescribed and to guard from loss/theft update 06/29/23 got injection #1 this week, no improvemen t yet update 08/07/23: no improvemen t with injections refill given, use sparingly [id number] Virginie Cifuentes MD [facility] Primary Care [address] [address] 10/09/2023 10:18:19 10/09/2023 10:41:51 Prediabetes 524311048 R73.03 doing wellincrea se ozempic to 1 mgf/u in 6 months to repeat labs Restless legs 44391905 G 25.81 trial of ropinirole 0.5 mg bid-review ed potential med s/ehas degenerati ve disk disease and has upcoming appt with neurosurge oncall with update in 4 weeks Mixed anxi ety and depressive disorder 536406524 F41.8 Does better on 40 mg dosagerefi ll given Degenerati on of lumbar intervertebral disc 68283162 M51.36 no improvemen t with pain mgmthas upcoming appt with neurosurge ry for consultati onrefill given, uses this sparingly [id number] MARIEL Oneil [address] [address] 05/02/2024 14:06:29 05/02/2024 15:41:00 Neuropathy 487588682 G62.9 Restless legs 04080162 G 25.81 Thoracic back pain 26721 8004 M54.6 Severe spondylosi s. Patient waiting for surgery, delayed due to cardiac issues. Patient agreeable to seeing pain management for future refills.La st XRs 10/2023 with neuro Diarrhea 78149152 R19.7 Nausea and vomiting 1693 2000 R11.2 Migraine 04533935 G43.90 9 Anxiety 38199911 F41.9 She is talking to [employer] and has a support group [id number] MARIEL Oneil [address] [address] 06/25/2024 09:54:34 06/25/2024 10:52:55 Fall W19.XXXA Prediabetes 521346704 R7 3.03 [id number] MARIEL Oneil [address] [address] 08/01/2024 14:50:16 08/01/2024 15:44:45 Low back pain 825612718 M54.50 Continue with pain management and PTAdd Tylenol 1,000 mg TIDUtilize Hydrocodon e as minimally as possibly Primary insomnia 6160156 F51.01 Major depr essive disorder 793725945 F32.9 Bacterial vaginosis 4197 92465 N76.0 [id number] Betty Salas [address] [address] 10/17/2024 15:03:24 10/17/2024 16:03:04 Fatigue 52810513 R53.83 Associated with a chronic/re current illness, myalgiasSt ates she is only awake approx 6 hrs per dayDifficu lty getting out of bed and being productive Cough 57773787 R05.9 Productive cough, green mucous Night sweats 41144092 R6 1 Drenching sweats, requires her to wash her sheets in the morning Obesity 865521972 E66.9 Abnormal vaginal odor 62 811979 N89.8 Has done one round of fluconazol e with minimal improvemen t [id number] Betty Salas [address] [address] 11/26/2024 16:14:24 11/26/2024 17:05:59 Left lower quadrant pain 556993741 R10.32 Abdominal bloating 22316 9008 R14.0 [id number] Btety Salas [address] [address] 02/07/2025 15:05:20 02/07/2025 16:34:55 Chronic obstructive pulmonary disease 50727600 J44.9 Inadequate control with trelegy Primary insomnia 1993530 F51.01 Managed well with zolpidem Chronic cough 63628225 R 05.3 will continue inhalers, will add EGD to colonoscop y Hypothyroidism 79511593 E03.9 Would like US Pain of le ft knee joint 4224131876 33071 M25.562 Sees pain management would like to see ortho Prediabetes 591509732 R7 3.03 Was taking ozempic, cannot tolerate Obstructiv e sleep apnea syndrome 27199173 G47.33 Last sleep study [address] Estrada, will get faxed overcomorb idities include obesity, Jeff knee pain, prediabete s, hyperlipid emia Hiatal hernia 74240107 K 44.9 Health Concerns Section Related Observation LastModified by Organization Detai ls LastModified Time None Recorded Concern Status LastModified by Organization Details LastModified Time None Recorded Advance Directives Directive N: Payers Encounter Date Sequence Insurance Name Policy Number Policy Mack Covered Member ID Mack Member ID Guarantor Name 06/25/2024 1 [employer] (MEDICARE REPLACEMENT PPO) [id number] Shantelle S Pfalzgraf [id number] Shantelle S Pfalzgraf 06/25/2024 2 [place] [employer] [place] [employer] Shantelle S Pfalzgraf [id number] Shantelle S Pfalzgraf 08/01/2024 1 [employer] (MEDICARE REPLACEMENT PPO) [id number] Shantelle S Pfalzgraf [id number] Shantelle S Pfalzgraf 08/01/2024 2 [place] Shantelle S Pfalzgraf [id number] Shantelle S Pfalzgraf 10/17/2024 1 [employer] (MEDICARE REPLACEMENT PPO) [id number] Shantelle S Pfalzgraf [id number] Shantelle S Pfalzgraf 10/17/2024 2 [place] Shantelle S Pfalzgraf [id number] Shantelle S Pfalzgraf 11/26/2024 1 [employer] (MEDICARE REPLACEMENT PPO) [id number] Shantelle S Pfalzgraf [id number] Shantelle S Pfalzgraf 11/26/2024 2 [place] Shantelle S Pfalzgraf [id number] Shantelle S Pfalzgraf 02/07/2025 1 [employer] (MEDICARE REPLACEMENT PPO) [id number] L Shantelle S Pfalzgraf [id number] Shantelle S Pfalzgraf 02/07/2025 2 [place] Shantelle S Pfalzgraf [id number] Shantelle S Pfalzgraf Notes Date Note Type Note Provider Name and Address Organization Details Recorded Time 06/25/2024 text/html Shantelle Hayley is a 69 year old female patient here today to discuss a fall. She tripped and fell last week onto a concrete pad. She landed on her right side, states she did not brace herself. Severe shoulder and back pain. States excruciating pain in the left leg. Cannot get comfortable.Has tried ice, epsom salt baths.Is taking pregabalin, Clay 5/325 mg, tizanidine 4 mg.Current pain 9/10 Feels that Ozempic is making her sick. Has only noticed since increasing to 2 mg. Will go back to 1 mg. MARIEL Oneil [address] [facility], [place], [address], [employer] 06/25/2024 12:12:48 08/01/2024 text/html Shantelle Hardy is a 69 year old female patient here today to FU on back pain. She fell around 06/18/24 and injured her back and right shoulder. CT spine shows severe lumbar spondylosis.She is seeing pain management and PT, minimal relief. Cannot sleep. Is considering surgery. Saw Belkis with neuro surgery in [place], was told she needs surgery.Is taking Clay 5/325, tizanidine 4 mg, and pregabalin 225 mgOnly takes Clay when needed, once or twice a week.Is having insurance issues and had to cancel appointments with pain management Has concerns with mood. States her citalopram is not enough. Is currently taking 60 mg PO daily. Will decrease to 40 mg daily and add Vraylar 1.5 mg every other day MARIEL Oneil [address] [facility], [address], [place], [address], [employer] 08/01/2024 15:44:22 10/17/2024 text/html Patient is a 69-year-old female with a past medical history of essential htn, hld, hypothyroidism, migraines, and anxiety/depression presenting for fatigue and chronic illness including a cough. Is sitting for 6-nataliia hours a day without energy to do anything. It has worsened significantly since Thanks. Takes awhile to get out of bed. Has rhinorrhea and coughs up green or clear mucous. Diffuse muscle aches. Doing anything seems to cause both aching and sharp pains especially in her chest bilaterally.Intermi ttent vomiting present as well. Her antiemetics help mildly.Is taking Mucinex and Theraflu, some mild improvement Concerns with hot and cold sweats in the evening, will wake up with drenched clothes, will have to wash sheets. frequent sicknesses, states she cannot stay healthy Concerns that she wakes up short of breath. Has a history of obstructive sleep apnea. Has not been using the CPAP. Increased Ozempic to 2 mg on 09/20/24, is not tolerating well. Was attempting to take 1 mg but found that she was still ill. Concerns today with vaginal odor. She did take fluconazole and felt some improvement but the odor then returned. MARIEL Oneil [address] [facility] [facility] [address], [place], [address], [employer] [facility] 10/17/2024 16:28:31 11/26/2024 text/html Shantelle Hardy is a 69 year old female patient here today for abdominal pain She took azithromycin 11/11/24-11/17/24 and began having diarrhea. She has is still having increased gas production, GERD, and stomach cramps.She states her stools range from loose to liquid, she is having 8-10 bowel movements per day. MARIEL Oneil [address] [facility], [facility] [address], [place], [address], [employer] 11/26/2024 17:09:02 02/07/2025 text/html Shantelle Hardy is a 69 year old female here with complaints of a cough. Saw her basket mender last week with concerns of her cough and to get cleared for her colonoscopy this week. Has had a cough for 2 years, since she had COVID. Last saw a science consultant last fall. Has coughed up a small amount blood into a tissue a few times. Has tried cough syrup which did not help. Tried loratidine which seemed to help. Cough is usually worse in the morning. Coughs up mucus. Has SOB with her coughing in the morning. Is using albuterol inhaler, 2 puffs in the morning and evening. She has been out of her Trelegy for a while. TIM - Has not been using her CPAP, her mask does not fit properly and she needs to get a better fitting mask. States that she cleans her CPAP machine frequently. Has SOB at night time and with exertion, sleeps elevated. Frequent diarrhea, 3-6x per day. - colonoscopy 02/12/25. Discussed taking a fiber supplement. GERD - is controlled when she remembers to take her 40mg pantoprazole. Wants to add an EGD to her colonoscopy this week.Insomnia - takes 5mg zolpidem at night. L Knee pain - wants to see ortho. Obesity - she has tried Ozempic in the past, but had to stop taking it d/t nausea and vomiting. Wants to try something new to help her lose weight. Betty Salas, HOSPICE OFFICE COORDINATOR [address] [facility], [address], [place], [address], [place] [facility] [employer] 02/07/2025 16:38:41 OBGyn Episode No OBEpisode recorded.
[2025-02-12 09:56] VITALS: BP 142/72; PULSE 61; RESP 18; TEMP 36.2; O2SAT 98
[2025-02-12] MEDS: LACTATED RINGERS 1,000 ML 150 ML IV CONT (10:14)
--- NOTE | 2025-02-12 10:37 | WPDANESEPPF ---
Anes - Initial Pre Proc Eval Procedure: Operation Date: 02/12/25 11:00 Proposed Procedures p Colonoscopy - Fab yLnn MD Date/Time: 02/12/25 10:37 Surgeon: Fab Lynn MD Pre Op Diagnosis: Diarrhea Patient Data Age: 69 Gender: F Height: 1.52 m Weight: 102.1 kg Last Vital Signs Temp 36.2 C L 02/12/25 09:56 Pulse 61 02/12/25 09:56 Resp 18 02/12/25 09:56 BP 142/72 H 02/12/25 09:56 Pulse Ox 98 02/12/25 09:56 O2 Del Method Room Air 02/12/25 09:56 Allergies Allergy/AdvReac Type Severity Reaction Status Date / Time No Known Allergies Allergy Verified 02/12/25 09:52 Home Medications ?Medication ?Instructions ?Recorded ?Confirmed ?Type loratadine 10 mg tablet 10 mg PO DAILY 11/25/21 02/12/25 History pantoprazole 40 mg tablet,delayed 40 mg PO QAM 07/20/22 02/12/25 History release pregabalin 200 mg capsule 200 mg PO DAILY 11/17/22 02/12/25 History albuterol sulfate 90 mcg/actuation 1 puff inhalation Q4H PRN 05/25/23 02/06/25 Rx aerosol inhaler shortness of breath or wheezing #8.5 grams aspirin 81 mg tablet,delayed 81 mg PO DAILY 05/25/23 02/12/25 History release ferrous sulfate 325 mg (65 mg 325 mg PO DAILY 05/25/23 02/06/25 History iron) tablet (FeroSul) furosemide 40 mg tablet 40 mg PO DAILY 05/25/23 02/12/25 History metoprolol tartrate 25 mg tablet 25 mg PO DAILY 05/25/23 02/12/25 History potassium chloride 20 mEq 20 meq PO DAILY 05/25/23 02/12/25 History tablet,extended release(part/cryst) atorvastatin 80 mg tablet 80 mg PO QHS 10/11/23 02/12/25 History citalopram 40 mg tablet 20 mg PO DAILY 10/11/23 02/12/25 History levothyroxine 88 mcg capsule 112 mcg PO DAILY 10/11/23 02/12/25 History nitroglycerin 0.4 mg sublingual 0.4 mg sublingual Q5M PRN Chest 12/06/23 04/03/25 History tablet Pain fluticasone fur. 200 mcg-umeclid 1 inh inhalation DAILY #60 ea 03/20/24 02/12/25 Rx 62.5 mcg-vilant 25 mcg inhalat.powder hydrocodone 5 mg-acetaminophen 325 1 tablet PO PRN PRN pain 02/06/25 02/06/25 History mg tablet ropinirole 1 mg tablet mg 02/06/25 History Patient hx anesthesia problems: none Family hx anesthesia problems: none Results Review: All pre-operative results and documents have been reviewed as part of the pre-operative evaluation. [facility] Past Medical History Medical History Hiatal hernia Diarrhea Degenerative disc disease cervical/lumbar GERD (gastroesophageal reflux disease) COVID-19 Hypertension Depression Anxiety Hypothyroidism Surgical History Surgical History S/P triple vessel bypass History of lumbar fusion 2018 Family History Family History Father Diabetes mellitus Heart disease Hypertension HLD (hyperlipidemia) Depression Mother Cancer Sibling Alcoholism Cancer Hypertension Depression Lung disease Social History Social History Smoking status: Never smoker Second hand tobacco smoke exposure: Yes Alcohol intake: current Alcohol use details: rarely Substance use: never Substance use type: does not use Lack of Transportation: No Lack of Food: Never True Current Housing: I Have Housing Concerned About Future Housing: No Difficulty Paying Gas/Electric Bills: YES Difficulty Paying for Meds: No Currently Unemployed: No Education: Trade/Vocational Certificate Difficulty w/ Childcare or Family Care: No Living arrangements: with family Occupation/Education: retired Gender identity (if verbalized by the patient): Female Spiritual care concerns: No Anes - Eval Final PreProcedure Day of Procedure 02/12/25 10:37 Patient weight: morbidly obese Heart: regular rate and rhythm Lungs: clear to auscultation Airway: Mallampati scale class II Neurological: alert and oriented Last oral intake: >/= 8 hours ASA classification: III Emergent: no Anesthetic plan: proceed Anesthesia type and monitoring: general GIVS and standard monitoring Results Review: All pre-operative results and documents have been reviewed as part of the pre-operative evaluation. Informed Consent: The patient's anesthetic plan and its attendant risks and benefits were discussed with the patient/family/POA. Questions were solicited and answers provided to the satisfaction of the patient/family/POA.
--- NOTE | 2025-02-12 10:55 | PM.IMHP ---
H&P: HPI History of Present Illness Date/Time: 02/12/25 10:55 Chief Complaint: Screening colonoscopy Narrative: This is the patient's first colonoscopy after 18 years.. There are no GI symptoms and there is no family history of colorectal cancer. Review of Systems Review of Systems: All systems reviewed & are unremarkable except as noted in HPI and below PMFSH Past Medical History Medical History Hiatal hernia Diarrhea Degenerative disc disease cervical/lumbar GERD (gastroesophageal reflux disease) COVID-19 Hypertension Depression Anxiety Hypothyroidism Surgical History Surgical History S/P triple vessel bypass History of lumbar fusion 2018 Family History Family History Father Diabetes mellitus Heart disease Hypertension HLD (hyperlipidemia) Depression Mother Cancer Sibling Alcoholism Cancer Hypertension Depression Lung disease Social History Social History Smoking status: Never smoker Second hand tobacco smoke exposure: Yes Alcohol intake: current Alcohol use details: rarely Substance use: never Substance use type: does not use Lack of Transportation: No Lack of Food: Never True Current Housing: I Have Housing Concerned About Future Housing: No Difficulty Paying Gas/Electric Bills: YES Difficulty Paying for Meds: No Currently Unemployed: No Education: Trade/Vocational Certificate Difficulty w/ Childcare or Family Care: No Living arrangements: with family Occupation/Education: retired Gender identity (if verbalized by the patient): Female Spiritual care concerns: No Meds Home Medications and Allergies Home Medications ?Medication ?Instructions ?Recorded ?Confirmed ?Type loratadine 10 mg tablet 10 mg PO DAILY 11/25/21 02/12/25 History pantoprazole 40 mg tablet,delayed 40 mg PO QAM 07/20/22 02/12/25 History release pregabalin 200 mg capsule 200 mg PO DAILY 11/17/22 02/12/25 History albuterol sulfate 90 mcg/actuation 1 puff inhalation Q4H PRN 05/25/23 02/06/25 Rx aerosol inhaler shortness of breath or wheezing #8.5 grams aspirin 81 mg tablet,delayed 81 mg PO DAILY 05/25/23 02/12/25 History release ferrous sulfate 325 mg (65 mg 325 mg PO DAILY 05/25/23 02/06/25 History iron) tablet (FeroSul) furosemide 40 mg tablet 40 mg PO DAILY 05/25/23 02/12/25 History metoprolol tartrate 25 mg tablet 25 mg PO DAILY 05/25/23 02/12/25 History potassium chloride 20 mEq 20 meq PO DAILY 05/25/23 02/12/25 History tablet,extended release(part/cryst) atorvastatin 80 mg tablet 80 mg PO QHS 10/11/23 02/12/25 History citalopram 40 mg tablet 20 mg PO DAILY 10/11/23 02/12/25 History levothyroxine 88 mcg capsule 112 mcg PO DAILY 10/11/23 02/12/25 History nitroglycerin 0.4 mg sublingual 0.4 mg sublingual Q5M PRN Chest 10/11/23 02/06/25 History tablet Pain fluticasone fur. 200 mcg-umeclid 1 inh inhalation DAILY #60 ea 03/20/24 02/12/25 Rx 62.5 mcg-vilant 25 mcg inhalat.powder hydrocodone 5 mg-acetaminophen 325 1 tablet PO PRN PRN pain 02/06/25 02/06/25 History mg tablet ropinirole 1 mg tablet mg 02/06/25 History Allergies Allergy/AdvReac Type Severity Reaction Status Date / Time No Known Allergies Allergy Verified 02/12/25 09:52 Vital Signs Vital Signs - 24 hr 02/12/25 09:56 Temperature 97.2 F L Pulse Rate 61 Respiratory Rate 18 Blood Pressure 142/72 H Pulse Oximetry 98 Oxygen Delivery Room Air Exam Const: General: cooperative and healthy appearing Resp: Effort & Inspection: normal respiratory effort and able to speak in complete sentences Auscultation: clear to auscultation bilaterally Cardio: Rate: regular rate Rhythm: regular rhythm GI: Inspection: normal to inspection GI Palp: No No hepatosplenomegaly present Auscultation: normal bowel sounds Rectal Exam: deferred Skin: General skin exam: normal color Psych: Appearance: grossly normal Mental Status: mental status grossly normal Assessment and Plan Assessment and plan (1) Encounter for screening colonoscopy: Code(s): Z12.11 - Encounter for screening for malignant neoplasm of colon Status: Acute Assessment and Plan: The patient is deemed a good candidate for the procedure. Consent signed. Will proceed.
[2025-02-12] MEDS: BENZOCAINE (*SP) 60 ML SPRAY CAN (HURRICAINE) 1 SPRAY MUCOUS MEM (11:15)
--- NOTE | 2025-02-12 11:22 | SUR.OPER ---
EGD: end 111, COLON: start 112
[2025-02-12 11:31] VITALS: BP 105/45; PULSE 60; RESP 17; O2SAT 98
[2025-02-12 11:41] VITALS: BP 106/49; PULSE 62; RESP 18; O2SAT 98
[2025-02-12 11:51] VITALS: BP 141/74; PULSE 60; RESP 24; O2SAT 100
== END 2025-02-12 12:25 | disposition home or self-care (01) ==
PROVIDERS: Referring Provider Nurse Practitioner Family; Visit Provider Internal Medicine Gastroenterology
PROC: 0DJ08ZZ Inspection of Upper Intestinal Tract, Via Natural or Artificial Opening Endoscopic (ICD-10-PCS; CPT 45378; principal; 2025-02-12 11:00)
DX: Z12.11 Encounter for screening for malignant neoplasm of colon (principal); K57.30 Diverticulosis of large intestine without perforation or abscess without bleeding; K44.9 Diaphragmatic hernia without obstruction or gangrene; K29.30 Chronic superficial gastritis without bleeding; E66.01 Morbid (severe) obesity due to excess calories; Z68.41 Body mass index [BMI] 40.0-44.9, adult
CPT/HCPCS: 43239; G0121; 88305; 88313; J2003; J2704; J7120